=== PATIENT | female | born 1950 | race Caucasian/White ===

== ENCOUNTER → 2017-01-26 | Outpatient (CLI) | payer BC, OTHER ==
[~2017-01-26] MED LIST: IOHEXOL 350 MG/ML 100ML IJ ONE
[2017-01-26 08:40] VITALS: BP 192/92
[2017-01-26 10:00] VITALS: BP 190/94
[2017-01-26 12:13] LABS: Basophils # (auto) 0 uL; Basophils % (auto) 0.5 % (0.0-2.0); Eosinophils # (auto) 0.1 uL; Eosinophils % (auto) 1.4 % (0.0-7.0); Hematocrit 43.9 % (36.0-46.0); Hemoglobin 14.8 g/dL (12.2-16.2); Lymphocytes % (auto) 35.6 % (10.0-50.0); Mean Corpuscular Hemoglobin 30.4 pg (28.0-32.0); Mean Corpuscular Hgb Conc. 33.6 g/dL (32.0-36.0); Mean Corpuscular Volume 90.4 fL (80.0-100.0); Mean Platelet Volume 9.2 fL (7.4-10.4); Monocytes # (auto) 0.5 uL; Monocytes % (auto) 6.1 % (0.0-12.0); Neutrophils # (auto) 4.7 uL; Neutrophils % (auto) 56.4 % (37.0-80.0); Platelet Count (auto) 294 10^3/uL (140-450); Red Cell Distribution Width 13.9 % (11.6-16.0); Urine Bilirubin Negative (Negative); Urine Blood TRACE /uL (Negative); Urine Color Yellow (Yellow); Urine Glucose Normal (Normal); Urine Ketone Negative (Negative); Urine Nitrite Negative (Negative); Urine Urobilinogen Normal (Negative); Urine pH 6.5 (5.0-8.0); White Blood Cell 8.4 10^3/uL (4.4-10.8)
[2017-01-26 13:25] LABS: Albumin 3.8 g/dL (3.4-5.0); Alkaline Phosphatase 91 U/L (45-117); Anion Gap 10 (5-15); BUN/Creatinine Ratio 18.8; Bilirubin, Direct < 0.1 mg/dL (0-0.2); Bilirubin, Total 0.4 mg/dL (0.2-1.0); Blood Urea Nitrogen 18 mg/dL (7-18); Carbon Dioxide 26 mmol/L (21-32); Chloride 107 mmol/L (98-107); Cholesterol 205 mg/dL (<200); GFR African American 75 mL/min; GFR Non-African American 62 mL/min; Glucose 92 mg/dL (74-106); HDL Cholesterol 66 mg/dL (40-59); LDL Cholesterol 137 mg/dL (<100); Potassium 3.9 mmol/L (3.5-5.1); Sodium 143 mmol/L (136-145); Total Protein 8.2 g/dL (6.4-8.2); Triglycerides 127 mg/dL (<150)
[2017-01-26 15:11] LABS: Aspartate Aminotransferase 16 U/L (15-37)
== END | disposition home or self-care (01) ==
LOC: Rad HDHVI 07:56
PROVIDERS: ATTEND Internal Medicine Cardiovascular Disease
DX: I10 Essential (primary) hypertension (principal); E78.00 Pure hypercholesterolemia, unspecified; K74.1 Hepatic sclerosis; E11.9 Type 2 diabetes mellitus without complications; E03.9 Hypothyroidism, unspecified; D64.9 Anemia, unspecified; E55.9 Vitamin D deficiency, unspecified; N39.0 Urinary tract infection, site not specified
CPT/HCPCS: 36415; 71260; 80048; 80061; 80076; 81003; 82306; 83036; 84443; 85025; G0463

== ENCOUNTER → 2017-02-03 | Outpatient (CLI) | payer BC | END | disposition home or self-care (01) | LOC: Rad HDHVI 09:26 | PROVIDERS: ATTEND Internal Medicine Cardiovascular Disease | DX: I10 Essential (primary) hypertension (principal); D52.0 Dietary folate deficiency anemia; E78.5 Hyperlipidemia, unspecified; Z77.22 Contact with and (suspected) exposure to environmental tobacco smoke (acute) (chronic) | CPT/HCPCS: 93880 ==

== ENCOUNTER → 2017-11-24 | Outpatient (CLI) | payer BC ==
[~2017-11-24] VITALS: Ht 162.6 cm; Wt 76.2 kg
[~2017-11-24] MED LIST changes: +ADENOSINE 64 MG in GIVE UN-DILUTED 0 ML IV ONE; +ADENOSINE 90 MG/30 ML INJ IV ONE; +READI-CAT 2 (BARIUM SULF)(VANILLA SMOOTHIE) 450ML ONE
[2017-11-24 11:30] VITALS: BP 157/82
[2017-11-24 12:12] VITALS: BP 175/89
[2017-11-24 12:29] LABS: Albumin 3.7 g/dL (3.4-5.0); BUN/Creatinine Ratio 21.8; Bilirubin, Total 0.3 mg/dL (0.2-1.0); Calcium 8.7 mg/dL (8.5-10.1); Potassium 3.7 mmol/L (3.5-5.1); Total Protein 7.7 g/dL (6.4-8.2)
[2017-11-24 12:38] LABS: Basophils # (auto) 0 uL; Basophils % (auto) 0.7 % (0.0-2.0); Eosinophils # (auto) 0.1 uL; Hematocrit 43.1 % (36.0-46.0); Hemoglobin 14.8 g/dL (12.2-16.2); Lymphocytes # (auto) 2.9 uL; Lymphocytes % (auto) 41.5 % (10.0-50.0); Mean Corpuscular Hemoglobin 31.3 pg (28.0-32.0); Mean Corpuscular Hgb Conc. 34.4 g/dL (32.0-36.0); Monocytes # (auto) 0.4 uL; Monocytes % (auto) 5.6 % (0.0-12.0); Neutrophils # (auto) 3.6 uL; Neutrophils % (auto) 51.2 % (37.0-80.0); Nucleated Red Blood Cells % 0.5 %; Platelet Count (auto) 274 10^3/uL (140-450); Red Blood Cells 4.73 10^6/uL (4.0-5.20); Red Cell Distribution Width 13.7 % (11.8-14.3); White Blood Cell 6.9 10^3/uL (4.4-10.8)
[2017-11-24 12:43] LABS: Urine Blood TRACE /uL (Negative); Urine Specific Gravity 1.008 (1.001-1.035)
[2017-11-24 12:44] LABS: Free T4 (Free Thyroxine) 1.18 ng/dL (0.89-1.76)
== END | disposition home or self-care (01) ==
LOC: Rad HDHVI 08:28
PROVIDERS: ATTEND Internal Medicine Cardiovascular Disease
DX: N28.89 Other specified disorders of kidney and ureter (principal); K57.30 Diverticulosis of large intestine without perforation or abscess without bleeding; I70.0 Atherosclerosis of aorta; I11.0 Hypertensive heart disease with heart failure; I50.22 Chronic systolic (congestive) heart failure; G45.9 Transient cerebral ischemic attack, unspecified; E78.00 Pure hypercholesterolemia, unspecified; D64.9 Anemia, unspecified; E11.9 Type 2 diabetes mellitus without complications; E03.9 Hypothyroidism, unspecified; E55.9 Vitamin D deficiency, unspecified; D51.9 Vitamin B12 deficiency anemia, unspecified; N39.0 Urinary tract infection, site not specified
CPT/HCPCS: 36415; 71260; 74177; 78452; 80053; 80061; 81003; 82306; 82565; 82607; 83036; 84439; 84443; 85025; 93017; 93880; 96374; 96375; A9500; G0463; Q9967; J0153

== ENCOUNTER → 2017-11-26 | Outpatient (CLI) | payer BC | END | disposition home or self-care (01) | LOC: Rad HDHVI 07:51 | PROVIDERS: ATTEND Internal Medicine Cardiovascular Disease | DX: I08.0 Rheumatic disorders of both mitral and aortic valves (principal) | CPT/HCPCS: 93306 ==

== ENCOUNTER → 2018-04-22 | Outpatient (CLI) | payer BC | END | disposition home or self-care (01) | LOC: Rad HDHVI 09:10 | PROVIDERS: ATTEND Internal Medicine Cardiovascular Disease | DX: K57.30 Diverticulosis of large intestine without perforation or abscess without bleeding (principal); I25.10 Atherosclerotic heart disease of native coronary artery without angina pectoris; M51.36 Other intervertebral disc degeneration, lumbar region; Z90.5 Acquired absence of kidney | CPT/HCPCS: 71250; 74176 ==

== ENCOUNTER → 2018-04-27 | Outpatient (CLI) | payer BC | END | disposition home or self-care (01) | LOC: Rad HDHVI 10:50 | PROVIDERS: ATTEND Internal Medicine Cardiovascular Disease | DX: C64.9 Malignant neoplasm of unspecified kidney, except renal pelvis (principal); R06.01 Orthopnea; R63.4 Abnormal weight loss; I25.10 Atherosclerotic heart disease of native coronary artery without angina pectoris; I11.0 Hypertensive heart disease with heart failure; E03.9 Hypothyroidism, unspecified; E78.5 Hyperlipidemia, unspecified; I50.22 Chronic systolic (congestive) heart failure; I77.1 Stricture of artery | CPT/HCPCS: 93926; 93930 ==

== ENCOUNTER 2018-06-02 09:54 | Inpatient (IN) | payer BC, MEDICARE ==
[~2018-06-02] VITALS: Ht 165.1 cm; Wt 75.6 kg
[~2018-06-02 09:54] MED LIST changes: -ADENOSINE 64 MG in GIVE UN-DILUTED 0 ML IV ONE; -ADENOSINE 90 MG/30 ML INJ IV ONE; +AZIL40TA2 PO; +EZET10TA6 PO; -IOHEXOL 350 MG/ML 100ML IJ ONE; +LEVO100T8 PO; -READI-CAT 2 (BARIUM SULF)(VANILLA SMOOTHIE) 450ML ONE
[2018-06-02] MEDS ORDERED: SODIUM CHL 0.9% 50 ML ONE (12:35)
[2018-06-02] MEDS ORDERED: MIDAZOLAM HCL 1MG/1ML-2 ML VIAL ONE (12:35)
[2018-06-02] MEDS ORDERED: ANGIOMAX 250 MG VIAL IV ONE (12:35)
[2018-06-02] MEDS ORDERED: fentaNYL CITRATE 100 MCG/2 ML VL ONE (12:35)
[2018-06-02] MEDS ORDERED: IOHEXOL 350 MG/ML 100ML IJ ONE (12:43)
[2018-06-02] MEDS ORDERED: LIDOCAINE 2%HCL (LOCAL ANESTH.) INJ 10ml MDV ONE (12:43)
[2018-06-02] MEDS ORDERED: VERAPAMIL 2.5MG/ML INJ 2ML VIAL IV ONE (13:06)
[2018-06-02] MEDS ORDERED: ASPirin 325 MG TAB ONE (13:40)
[2018-06-02] MEDS ORDERED: CLOPIDOGREL 300 MG TAB ONE (13:40)
[2018-06-02] MEDS ORDERED: ONDANSETRON HCL 4 MG/2 ML VIAL IV PRN (14:15)
[2018-06-02] MEDS ORDERED: MORPHINE SULF INJ 2 MG/ML SYRINGE 1ML IV PRN (14:15)
[2018-06-02] MEDS ORDERED: NITROGLYCERIN 0.4 MG SL TAB SL PRN (14:15)
[2018-06-02] MEDS ORDERED: ACETAMINOPHEN 500 MG TAB PO PRN (14:15)
[2018-06-02] MEDS ORDERED: HYDROcodone-ACET 5/325MG TAB PO PRN (14:15)
[2018-06-02 17:00] VITALS: BP 149/81
[2018-06-02 17:40] VITALS: BP 149/81
[2018-06-02] MEDS: SODIUM CHLOR 0.9% PF (SALINE LOCK) 10ML VIAL/SYR IV SCH (21:11)
[2018-06-02 22:00] VITALS: BP 138/70
[2018-06-03 05:00] VITALS: BP 104/56
[2018-06-03] MEDS: SODIUM CHLOR 0.9% PF (SALINE LOCK) 10ML VIAL/SYR IV SCH ×2 (06:11→13:39)
[2018-06-03] MEDS ORDERED: LEVOTHYROXINE SODIUM 100 MCG TAB PO SCH (07:00)
[2018-06-03 09:00] VITALS: BP 123/68
[2018-06-03] MEDS ORDERED: CLOPIDOGREL BISULFATE 75 MG TAB PO SCH (10:00)
[2018-06-03] MEDS ORDERED: ASPirin 81 mg TAB PO SCH (10:00)
[2018-06-03 13:00] VITALS: BP 121/73
[2018-06-03 16:11] VITALS: BP 121/73
== END 2018-06-03 16:58 | disposition home or self-care (01) | DRG 254 ==
LOC: CATH 09:54 → TELE-EAST 09:55 → EAST 20:20
PROVIDERS: ADMIT Internal Medicine Cardiovascular Disease; ATTEND Internal Medicine Cardiovascular Disease
PROC: 037434Z Dilation of Left Subclavian Artery with Drug-eluting Intraluminal Device, Percutaneous Approach (ICD-10-PCS; principal; 2018-06-02)
DX: I70.8 Atherosclerosis of other arteries (principal); I25.10 Atherosclerotic heart disease of native coronary artery without angina pectoris; J44.9 Chronic obstructive pulmonary disease, unspecified; Z87.891 Personal history of nicotine dependence
CPT/HCPCS: 37236; 99152; A6257; J2001; J2250

== ENCOUNTER → 2018-07-28 | Outpatient (CLI) | payer BC, MEDICARE | END | disposition home or self-care (01) | LOC: Rad HDHVI 08:18 | PROVIDERS: ATTEND Internal Medicine Cardiovascular Disease | DX: M81.0 Age-related osteoporosis without current pathological fracture (principal); M17.0 Bilateral primary osteoarthritis of knee; M25.762 Osteophyte, left knee; M76.52 Patellar tendinitis, left knee | CPT/HCPCS: 73700 ==

== ENCOUNTER → 2018-09-23 | Outpatient (CLI) | payer BC, MEDICARE | END | disposition home or self-care (01) | LOC: Rad HDHVI 09:16 | PROVIDERS: ATTEND Internal Medicine Cardiovascular Disease | DX: K57.90 Diverticulosis of intestine, part unspecified, without perforation or abscess without bleeding (principal); I70.8 Atherosclerosis of other arteries; K44.9 Diaphragmatic hernia without obstruction or gangrene | CPT/HCPCS: 74176 ==

== ENCOUNTER → 2019-05-16 | Outpatient (CLI) | payer BC, MEDICARE | END | disposition home or self-care (01) | LOC: Rad HDHVI 09:45 | PROVIDERS: ATTEND Internal Medicine Cardiovascular Disease | DX: K57.30 Diverticulosis of large intestine without perforation or abscess without bleeding (principal); R91.1 Solitary pulmonary nodule; K44.9 Diaphragmatic hernia without obstruction or gangrene; M51.34 Other intervertebral disc degeneration, thoracic region | CPT/HCPCS: 74176 ==

== ENCOUNTER → 2019-05-17 | Outpatient (CLI) | payer BC, MEDICARE ==
[~2019-05-17] MED LIST changes: +EZET10TA22 PO; -EZET10TA6 PO
== END | disposition home or self-care (01) ==
LOC: Rad HDHVI 08:45
PROVIDERS: ATTEND Internal Medicine Cardiovascular Disease
DX: I34.0 Nonrheumatic mitral (valve) insufficiency (principal); I25.10 Atherosclerotic heart disease of native coronary artery without angina pectoris; J44.9 Chronic obstructive pulmonary disease, unspecified; I10 Essential (primary) hypertension
CPT/HCPCS: 93306

== ENCOUNTER → 2019-05-30 | Outpatient (CLI) | payer BC, MEDICARE ==
[~2019-05-30] VITALS: Ht 165.1 cm; Wt 77.1 kg
[~2019-05-30] MED LIST changes: +ADENOSINE 65 MG in GIVE UN-DILUTED 0 ML IV ONE; +ADENOSINE 90 MG/30 ML INJ IV ONE
[2019-05-30 12:07] LABS: Basophils # (auto) 0 uL; Basophils % (auto) 0.7 % (0.0-2.0); Eosinophils # (auto) 0.1 uL; Eosinophils % (auto) 1.6 % (0.0-7.0); Hematocrit 39.6 % (36.0-46.0); Hemoglobin 13.4 g/dL (12.2-16.2); Lymphocytes # (auto) 2.4 uL; Lymphocytes % (auto) 39.6 % (10.0-50.0); Mean Corpuscular Hgb Conc. 33.9 g/dL (32.0-36.0); Mean Corpuscular Volume 91.5 fL (80.0-100.0); Monocytes # (auto) 0.5 uL; Monocytes % (auto) 8.6 % (0.0-12.0); Neutrophils % (auto) 49.5 % (37.0-80.0); Nucleated Red Blood Cells % 0.4 %; Platelet Count (auto) 241 10^3/uL (140-450); Red Blood Cells 4.33 10^6/uL (4.0-5.20); Red Cell Distribution Width 14.3 % (11.8-14.3); White Blood Cell 6.1 10^3/uL (4.4-10.8)
[2019-05-30 12:35] LABS: Free T4 (Free Thyroxine) 1.32 ng/dL (0.89-1.76)
[2019-05-30 12:38] LABS: Urine Blood Negative /uL (Negative); Urine Specific Gravity 1.006 (1.001-1.035)
[2019-05-30 13:32] LABS: Potassium 4.5 mmol/L (3.5-5.1)
[2019-05-30 14:02] LABS: Albumin 3.9 g/dL (3.4-5.0); BUN/Creatinine Ratio 20.4; Bilirubin, Total 0.3 mg/dL (0.2-1.0); Calcium 9.5 mg/dL (8.5-10.1); Total Protein 7.9 g/dL (6.4-8.2)
== END | disposition home or self-care (01) ==
LOC: Rad HDHVI 08:59
PROVIDERS: ATTEND Internal Medicine Cardiovascular Disease
DX: Z00.00 Encounter for general adult medical examination without abnormal findings (principal); E03.9 Hypothyroidism, unspecified; E55.9 Vitamin D deficiency, unspecified; N39.0 Urinary tract infection, site not specified; D51.9 Vitamin B12 deficiency anemia, unspecified; E11.9 Type 2 diabetes mellitus without complications; Z79.899 Other long term (current) drug therapy
CPT/HCPCS: 36415; 78452; 80053; 80061; 81003; 82306; 82607; 83036; 84439; 84443; 85025; 93005; 96374; 96375; A9500; J0153

== ENCOUNTER → 2019-08-29 | Outpatient (CLI) | payer BC, MEDICARE ==
[~2019-08-29] MED LIST changes: -ADENOSINE 65 MG in GIVE UN-DILUTED 0 ML IV ONE; -ADENOSINE 90 MG/30 ML INJ IV ONE
[2019-08-29 12:14] VITALS: BP 163/82
--- NOTE | 2019-08-29 12:15 | NUR ---
Signature Attestation Statement: I DALE PRICE performed this procedure EECP on this patient. Addendum: 08/29/19 at 1216 by DALE PRICE [email or web address] Amended: Links added.
[2019-08-29 12:16] VITALS: BP 136/77
--- NOTE | 2019-08-29 12:16 | NUR ---
Signature Attestation Statement: I DALE PRICE performed this procedure EECP on this patient. Addendum: 08/29/19 at 1217 by DALE PRICE [email or web address] Amended: Links added.
--- NOTE | 2019-08-29 12:17 | NUR ---
Signature Attestation Statement: I DALE PRICE performed this procedure EECP on this patient. Addendum: 08/29/19 at 1221 by DALE PRICE [email or web address] Amended: Links added.
--- NOTE | 2019-08-29 12:24 | NUR ---
Signature Attestation Statement: I DALE PRICE performed this procedure EECP on this patient. Addendum: 08/29/19 at 1225 by DALE PRICE [email or web address] Amended: Links added.
== END | disposition home or self-care (01) ==
LOC: CHF HDHVI 10:25
PROVIDERS: ATTEND Internal Medicine Cardiovascular Disease
DX: I25.118 Atherosclerotic heart disease of native coronary artery with other forms of angina pectoris (principal); I10 Essential (primary) hypertension; J44.9 Chronic obstructive pulmonary disease, unspecified; I63.9 Cerebral infarction, unspecified; H54.7 Unspecified visual loss; F17.200 Nicotine dependence, unspecified, uncomplicated; E78.00 Pure hypercholesterolemia, unspecified; Z98.61 Coronary angioplasty status
CPT/HCPCS: G0166

== ENCOUNTER → 2019-08-30 | Outpatient (CLI) | payer BC, MEDICARE ==
[2019-08-30 11:51] VITALS: BP 160/89
[2019-08-30 11:52] VITALS: BP 165/85
--- NOTE | 2019-08-30 11:52 | NUR ---
Signature Attestation Statement: I DALE PRICE performed this procedure EECP on this patient. Addendum: 08/30/19 at 1152 by DALE PRICE [email or web address] Amended: Links added.
--- NOTE | 2019-08-30 11:53 | NUR ---
Signature Attestation Statement: I DALE PRICE performed this procedure EECP on this patient. Addendum: 08/30/19 at 1153 by DALE PRICE [email or web address] Amended: Links added.
--- NOTE | 2019-08-30 11:53 | NUR ---
Signature Attestation Statement: I DALE PRICE performed this procedure EECP on this patient. Addendum: 08/30/19 at 1154 by DALE PRICE [email or web address] Amended: Links added.
--- NOTE | 2019-08-30 11:59 | NUR ---
Signature Attestation Statement: I DALE PRICE performed this procedure EECP on this patient. Addendum: 08/30/19 at 1159 by DALE PRICE [email or web address] Amended: Links added.
== END | disposition home or self-care (01) ==
LOC: CHF HDHVI 10:08
PROVIDERS: ATTEND Internal Medicine Cardiovascular Disease
DX: I25.118 Atherosclerotic heart disease of native coronary artery with other forms of angina pectoris (principal); I10 Essential (primary) hypertension; J44.9 Chronic obstructive pulmonary disease, unspecified; I63.9 Cerebral infarction, unspecified; H54.7 Unspecified visual loss; F17.200 Nicotine dependence, unspecified, uncomplicated; I67.9 Cerebrovascular disease, unspecified; I73.9 Peripheral vascular disease, unspecified; E78.00 Pure hypercholesterolemia, unspecified; Z98.61 Coronary angioplasty status
CPT/HCPCS: G0166

== ENCOUNTER → 2019-08-31 | Outpatient (CLI) | payer BC, MEDICARE ==
[2019-08-31 12:23] VITALS: BP 109/67
[2019-08-31 12:24] VITALS: BP 115/73
--- NOTE | 2019-08-31 12:24 | NUR ---
Signature Attestation Statement: I DALE PRICE performed this procedure EECP on this patient. Addendum: 08/31/19 at 1224 by DALE PRICE [email or web address] Amended: Links added.
--- NOTE | 2019-08-31 12:24 | NUR ---
Signature Attestation Statement: I DALE PRICE performed this procedure EECP on this patient. Addendum: 08/31/19 at 1225 by DALE PRICE [email or web address] Amended: Links added.
--- NOTE | 2019-08-31 12:25 | NUR ---
Signature Attestation Statement: I DALE PRICE performed this procedure EECP on this patient. Addendum: 08/31/19 at 1226 by DALE PRICE [email or web address] Amended: Links added.
--- NOTE | 2019-08-31 12:30 | NUR ---
Signature Attestation Statement: I DALE PRICE performed this procedure EECP on this patient. Addendum: 08/31/19 at 1230 by DALE PRICE [email or web address] Amended: Links added.
== END | disposition home or self-care (01) ==
LOC: CHF HDHVI 10:17
PROVIDERS: ATTEND Internal Medicine Cardiovascular Disease
DX: I25.118 Atherosclerotic heart disease of native coronary artery with other forms of angina pectoris (principal); E78.00 Pure hypercholesterolemia, unspecified; I63.9 Cerebral infarction, unspecified; H54.7 Unspecified visual loss; I67.9 Cerebrovascular disease, unspecified; I10 Essential (primary) hypertension; I73.9 Peripheral vascular disease, unspecified
CPT/HCPCS: G0166

== ENCOUNTER → 2019-09-04 | Outpatient (CLI) | payer BC, MEDICARE ==
[2019-09-04 11:11] VITALS: BP 126/76
--- NOTE | 2019-09-04 11:11 | NUR ---
Signature Attestation Statement: I DALE PRICE performed this procedure EECP on this patient. Addendum: 09/04/19 at 1112 by DALE PRICE [email or web address] Amended: Links added.
[2019-09-04 11:30] VITALS: BP 115/73
--- NOTE | 2019-09-04 11:30 | NUR ---
Signature Attestation Statement: I DALE PRICE performed this procedure EECP on this patient. Addendum: 09/04/19 at 1130 by DALE PRICE [email or web address] Amended: Links added.
--- NOTE | 2019-09-04 11:36 | NUR ---
Signature Attestation Statement: I DALE PRICE performed this procedure EECP on this patient. Addendum: 09/04/19 at 1136 by DALE PRICE [email or web address] Amended: Links added.
== END | disposition home or self-care (01) ==
LOC: CHF HDHVI 10:16
PROVIDERS: ATTEND Internal Medicine Cardiovascular Disease
DX: I25.118 Atherosclerotic heart disease of native coronary artery with other forms of angina pectoris (principal); J44.9 Chronic obstructive pulmonary disease, unspecified; I10 Essential (primary) hypertension; I63.9 Cerebral infarction, unspecified; H54.7 Unspecified visual loss; F17.200 Nicotine dependence, unspecified, uncomplicated; I67.9 Cerebrovascular disease, unspecified; I73.9 Peripheral vascular disease, unspecified; E78.00 Pure hypercholesterolemia, unspecified; Z98.61 Coronary angioplasty status
CPT/HCPCS: G0166

== ENCOUNTER → 2019-09-05 | Outpatient (CLI) | payer BC, MEDICARE ==
[2019-09-05 11:06] VITALS: BP 122/70
--- NOTE | 2019-09-05 11:07 | NUR ---
Signature Attestation Statement: I DALE PRICE performed this procedure EECP on this patient. Addendum: 09/05/19 at 1107 by DALE PRICE [email or web address] Amended: Links added.
--- NOTE | 2019-09-05 11:08 | NUR ---
Signature Attestation Statement: I DALE PRICE performed this procedure EECP on this patient. Addendum: 09/05/19 at 1108 by DALE PRICE [email or web address] Amended: Links added.
[2019-09-05 12:01] VITALS: BP 98/64
--- NOTE | 2019-09-05 12:01 | NUR ---
Signature Attestation Statement: I DALE PRICE performed this procedure EECP on this patient. Addendum: 09/05/19 at 1201 by DALE PRICE [email or web address] Amended: Links added.
[2019-09-05 12:02] VITALS: BP 98/64
--- NOTE | 2019-09-05 12:02 | NUR ---
Signature Attestation Statement: I DALE PRICE performed this procedure EECP on this patient. Addendum: 09/05/19 at 1202 by DALE PRICE [email or web address] Amended: Links added.
--- NOTE | 2019-09-05 12:03 | NUR ---
Signature Attestation Statement: I DALE PRICE performed this procedure EECP on this patient. Addendum: 09/05/19 at 1204 by DALE PRICE [email or web address] Amended: Links added.
== END | disposition home or self-care (01) ==
LOC: CHF HDHVI 10:29
PROVIDERS: ATTEND Internal Medicine Cardiovascular Disease
DX: I25.118 Atherosclerotic heart disease of native coronary artery with other forms of angina pectoris (principal); I10 Essential (primary) hypertension; J44.9 Chronic obstructive pulmonary disease, unspecified; I63.9 Cerebral infarction, unspecified; H54.7 Unspecified visual loss; F17.200 Nicotine dependence, unspecified, uncomplicated; I67.9 Cerebrovascular disease, unspecified; I73.9 Peripheral vascular disease, unspecified; E78.00 Pure hypercholesterolemia, unspecified; Z98.61 Coronary angioplasty status
CPT/HCPCS: G0166

== ENCOUNTER → 2019-09-06 | Outpatient (CLI) | payer BC, MEDICARE ==
[2019-09-06 10:58] VITALS: BP 151/80
--- NOTE | 2019-09-06 10:59 | NUR ---
Signature Attestation Statement: I DALE PRICE performed this procedure EECP on this patient. Addendum: 09/06/19 at 1059 by DALE PRICE [email or web address] Amended: Links added.
--- NOTE | 2019-09-06 10:59 | NUR ---
Signature Attestation Statement: I DALE PRICE performed this procedure EECP on this patient. Addendum: 09/06/19 at 1100 by DALE PRICE [email or web address] Amended: Links added.
--- NOTE | 2019-09-06 11:44 | NUR ---
Signature Attestation Statement: I DALE PRICE performed this procedure EECP on this patient. Addendum: 09/06/19 at 1145 by DALE PRICE [email or web address] Amended: Links added.
[2019-09-06 11:45] VITALS: BP 154/89
--- NOTE | 2019-09-06 11:45 | NUR ---
Signature Attestation Statement: I DALE PRICE performed this procedure EECP on this patient. Addendum: 09/06/19 at 1146 by DALE PRICE [email or web address] Amended: Links added.
== END | disposition home or self-care (01) ==
LOC: CHF HDHVI 10:20
PROVIDERS: ATTEND Internal Medicine Cardiovascular Disease
DX: I25.118 Atherosclerotic heart disease of native coronary artery with other forms of angina pectoris (principal); I10 Essential (primary) hypertension; J44.9 Chronic obstructive pulmonary disease, unspecified; I63.9 Cerebral infarction, unspecified; H54.7 Unspecified visual loss; F17.200 Nicotine dependence, unspecified, uncomplicated; I67.9 Cerebrovascular disease, unspecified; I73.9 Peripheral vascular disease, unspecified; E78.00 Pure hypercholesterolemia, unspecified; Z98.61 Coronary angioplasty status
CPT/HCPCS: G0166

== ENCOUNTER → 2019-09-07 | Outpatient (CLI) | payer BC, MEDICARE ==
[2019-09-07 11:39] VITALS: BP 146/91
--- NOTE | 2019-09-07 11:40 | NUR ---
Signature Attestation Statement: I DALE PRICE performed this procedure EECP on this patient. Addendum: 09/07/19 at 1141 by DALE PRICE [email or web address] Amended: Links added.
[2019-09-07 11:41] VITALS: BP 135/79
--- NOTE | 2019-09-07 11:41 | NUR ---
Signature Attestation Statement: I DALE PRICE performed this procedure EECP on this patient. Addendum: 09/07/19 at 1142 by DALE PRICE [email or web address] Amended: Links added.
--- NOTE | 2019-09-07 11:42 | NUR ---
Signature Attestation Statement: I DALE PRICE performed this procedure EECP on this patient. Addendum: 09/07/19 at 1143 by DALE PRICE [email or web address] Amended: Links added.
--- NOTE | 2019-09-07 11:50 | NUR ---
Signature Attestation Statement: I DALE PRICE performed this procedure EECP on this patient. Addendum: 09/07/19 at 1150 by DALE PRICE [email or web address] Amended: Links added.
== END | disposition home or self-care (01) ==
LOC: CHF HDHVI 10:03
PROVIDERS: ATTEND Internal Medicine Cardiovascular Disease
DX: I25.118 Atherosclerotic heart disease of native coronary artery with other forms of angina pectoris (principal); J44.9 Chronic obstructive pulmonary disease, unspecified; I10 Essential (primary) hypertension; I63.9 Cerebral infarction, unspecified; H54.7 Unspecified visual loss; F17.200 Nicotine dependence, unspecified, uncomplicated; I67.9 Cerebrovascular disease, unspecified; I73.9 Peripheral vascular disease, unspecified; E78.00 Pure hypercholesterolemia, unspecified; Z98.61 Coronary angioplasty status
CPT/HCPCS: G0166

== ENCOUNTER → 2019-09-08 | Outpatient (CLI) | payer BC, MEDICARE ==
[2019-09-08 10:47] VITALS: BP 143/82
--- NOTE | 2019-09-08 10:47 | NUR ---
Signature Attestation Statement: I DALE PRICE performed this procedure EECP on this patient. Addendum: 09/08/19 at 1048 by DALE PRICE [email or web address] Amended: Links added.
--- NOTE | 2019-09-08 10:49 | NUR ---
Signature Attestation Statement: I DALE PRICE performed this procedure EECP on this patient. Addendum: 09/08/19 at 1049 by DALE PRICE [email or web address] Amended: Links added.
[2019-09-08 12:15] VITALS: BP 131/78
--- NOTE | 2019-09-08 12:15 | NUR ---
Signature Attestation Statement: I DALE PRICE performed this procedure EECP on this patient. Addendum: 09/08/19 at 1216 by DALE PRICE [email or web address] Amended: Links added.
--- NOTE | 2019-09-08 12:15 | NUR ---
Signature Attestation Statement: I DALE PRICE performed this procedure EECP on this patient. Addendum: 09/08/19 at 1215 by DALE PRICE [email or web address] Amended: Links added.
[2019-09-08 12:16] VITALS: BP 143/82
--- NOTE | 2019-09-08 12:16 | NUR ---
Signature Attestation Statement: I DALE PRICE performed this procedure EECP on this patient. Addendum: 09/08/19 at 1217 by DALE PRICE [email or web address] Amended: Links added.
--- NOTE | 2019-09-08 12:19 | NUR ---
Signature Attestation Statement: I DALE PRICE performed this procedure EECP on this patient. Addendum: 09/08/19 at 1219 by DALE PRICE [email or web address] Amended: Links added.
== END | disposition home or self-care (01) ==
LOC: CHF HDHVI 10:03
PROVIDERS: ATTEND Internal Medicine Cardiovascular Disease
DX: I25.118 Atherosclerotic heart disease of native coronary artery with other forms of angina pectoris (principal); J44.9 Chronic obstructive pulmonary disease, unspecified; I10 Essential (primary) hypertension; I63.9 Cerebral infarction, unspecified; H54.7 Unspecified visual loss; F17.200 Nicotine dependence, unspecified, uncomplicated; I67.9 Cerebrovascular disease, unspecified; I73.9 Peripheral vascular disease, unspecified; E78.00 Pure hypercholesterolemia, unspecified; Z98.61 Coronary angioplasty status
CPT/HCPCS: G0166

== ENCOUNTER → 2019-09-12 | Outpatient (CLI) | payer BC, MEDICARE ==
[2019-09-12 10:53] VITALS: BP 161/87
--- NOTE | 2019-09-12 10:53 | NUR ---
Signature Attestation Statement: I DALE PRICE performed this procedure EECP on this patient. Addendum: 09/12/19 at 1053 by DALE PRICE [email or web address] Amended: Links added.
--- NOTE | 2019-09-12 10:54 | NUR ---
Signature Attestation Statement: I DALE PRICE performed this procedure EECP on this patient. Addendum: 09/12/19 at 1054 by DALE PRICE [email or web address] Amended: Links added.
[2019-09-12 11:22] VITALS: BP 148/83
--- NOTE | 2019-09-12 11:22 | NUR ---
Signature Attestation Statement: I DALE PRICE performed this procedure EECP on this patient. Addendum: 09/12/19 at 1122 by DALE PRICE [email or web address] Amended: Links added.
--- NOTE | 2019-09-12 11:32 | NUR ---
Signature Attestation Statement: I DALE PRICE performed this procedure EECP on this patient. Addendum: 09/12/19 at 1132 by DALE PRICE [email or web address] Amended: Links added.
== END | disposition home or self-care (01) ==
LOC: CHF HDHVI 10:03
PROVIDERS: ATTEND Internal Medicine Cardiovascular Disease
DX: I25.118 Atherosclerotic heart disease of native coronary artery with other forms of angina pectoris (principal); I10 Essential (primary) hypertension; J44.9 Chronic obstructive pulmonary disease, unspecified; I63.9 Cerebral infarction, unspecified; H54.7 Unspecified visual loss; F17.200 Nicotine dependence, unspecified, uncomplicated; I67.9 Cerebrovascular disease, unspecified; I73.9 Peripheral vascular disease, unspecified; E78.00 Pure hypercholesterolemia, unspecified; Z88.2 Allergy status to sulfonamides; Z88.1 Allergy status to other antibiotic agents; Z88.8 Allergy status to other drugs, medicaments and biological substances; Z98.61 Coronary angioplasty status; Z95.818 Presence of other cardiac implants and grafts
CPT/HCPCS: G0166

== ENCOUNTER → 2019-09-13 | Outpatient (CLI) | payer BC, MEDICARE ==
[2019-09-13 10:55] VITALS: BP 132/74
--- NOTE | 2019-09-13 10:56 | NUR ---
Signature Attestation Statement: I DALE PRICE performed this procedure EECP on this patient. Addendum: 09/13/19 at 1057 by DALE PRICE [email or web address] Amended: Links added.
--- NOTE | 2019-09-13 11:23 | NUR ---
Signature Attestation Statement: I DALE PRICE performed this procedure EECP on this patient. Addendum: 09/13/19 at 1124 by DALE PRICE [email or web address] Amended: Links added.
[2019-09-13 11:24] VITALS: BP 128/77
--- NOTE | 2019-09-13 11:33 | NUR ---
Signature Attestation Statement: I DALE PRICE performed this procedure EECP on this patient. Addendum: 09/13/19 at 1133 by DALE PRICE [email or web address] Amended: Links added.
== END | disposition home or self-care (01) ==
LOC: CHF HDHVI 10:05
PROVIDERS: ATTEND Internal Medicine Cardiovascular Disease
DX: I25.118 Atherosclerotic heart disease of native coronary artery with other forms of angina pectoris (principal); Z98.61 Coronary angioplasty status; J44.9 Chronic obstructive pulmonary disease, unspecified; I10 Essential (primary) hypertension; I63.9 Cerebral infarction, unspecified; H54.7 Unspecified visual loss; F17.200 Nicotine dependence, unspecified, uncomplicated; I67.9 Cerebrovascular disease, unspecified; I73.9 Peripheral vascular disease, unspecified; E78.00 Pure hypercholesterolemia, unspecified; Z88.2 Allergy status to sulfonamides; Z88.1 Allergy status to other antibiotic agents
CPT/HCPCS: G0166

== ENCOUNTER → 2019-09-14 | Outpatient (CLI) | payer BC, MEDICARE ==
[2019-09-14 11:38] VITALS: BP 126/76
--- NOTE | 2019-09-14 11:39 | NUR ---
Signature Attestation Statement: I DALE PRICE performed this procedure EECP on this patient. Addendum: 09/14/19 at 1139 by DALE PRICE [email or web address] Amended: Links added.
--- NOTE | 2019-09-14 11:39 | NUR ---
Signature Attestation Statement: I DALE PRICE performed this procedure EECP on this patient. Addendum: 09/14/19 at 1140 by DALE PRICE [email or web address] Amended: Links added.
[2019-09-14 12:17] VITALS: BP 126/78
--- NOTE | 2019-09-14 12:17 | NUR ---
Signature Attestation Statement: I DALE PRICE performed this procedure EECP on this patient. Addendum: 09/14/19 at 1217 by DALE PRICE [email or web address] Amended: Links added.
--- NOTE | 2019-09-14 12:23 | NUR ---
Signature Attestation Statement: I DALE PRICE performed this procedure EECP on this patient. Addendum: 09/14/19 at 1224 by DALE PRICE [email or web address] Amended: Links added.
== END | disposition home or self-care (01) ==
LOC: CHF HDHVI 10:18
PROVIDERS: ATTEND Internal Medicine Cardiovascular Disease
DX: I25.118 Atherosclerotic heart disease of native coronary artery with other forms of angina pectoris (principal); J44.9 Chronic obstructive pulmonary disease, unspecified; I10 Essential (primary) hypertension; I63.9 Cerebral infarction, unspecified; H54.7 Unspecified visual loss; F17.200 Nicotine dependence, unspecified, uncomplicated; I67.9 Cerebrovascular disease, unspecified; I73.9 Peripheral vascular disease, unspecified; E78.00 Pure hypercholesterolemia, unspecified; Z88.1 Allergy status to other antibiotic agents; Z98.61 Coronary angioplasty status; Z88.8 Allergy status to other drugs, medicaments and biological substances
CPT/HCPCS: G0166

== ENCOUNTER → 2019-09-15 | Outpatient (CLI) | payer BC, MEDICARE ==
[2019-09-15 10:47] VITALS: BP 148/79
--- NOTE | 2019-09-15 10:48 | NUR ---
Signature Attestation Statement: I DALE PRICE performed this procedure EECP on this patient. Addendum: 09/15/19 at 1049 by DALE PRICE [email or web address] Amended: Links added.
--- NOTE | 2019-09-15 10:48 | NUR ---
Signature Attestation Statement: I DLAE PRICE performed this procedure EECP on this patient. Addendum: 09/15/19 at 1048 by DALE PRICE [email or web address] Amended: Links added.
--- NOTE | 2019-09-15 11:16 | NUR ---
Signature Attestation Statement: I DALE PRICE performed this procedure EECP on this patient. Addendum: 09/15/19 at 1117 by DALE PRICE [email or web address] Amended: Links added.
[2019-09-15 11:17] VITALS: BP 133/75
--- NOTE | 2019-09-15 11:26 | NUR ---
Signature Attestation Statement: I DALE PRICE performed this procedure EECP on this patient. Addendum: 09/15/19 at 1126 by DALE PRICE [email or web address] Amended: Links added.
== END | disposition home or self-care (01) ==
LOC: CHF HDHVI 10:12
PROVIDERS: ATTEND Internal Medicine Cardiovascular Disease
DX: I25.118 Atherosclerotic heart disease of native coronary artery with other forms of angina pectoris (principal); J44.9 Chronic obstructive pulmonary disease, unspecified; I10 Essential (primary) hypertension; H54.7 Unspecified visual loss; I67.9 Cerebrovascular disease, unspecified; I73.9 Peripheral vascular disease, unspecified; E78.00 Pure hypercholesterolemia, unspecified; F17.200 Nicotine dependence, unspecified, uncomplicated; Z98.61 Coronary angioplasty status
CPT/HCPCS: G0166

== ENCOUNTER → 2019-09-19 | Outpatient (CLI) | payer BC, MEDICARE ==
[2019-09-19 12:00] VITALS: BP 154/87
--- NOTE | 2019-09-19 12:00 | NUR ---
Signature Attestation Statement: I DALE PRICE performed this procedure EECP on this patient. Addendum: 09/19/19 at 1203 by DALE PRICE [email or web address] Amended: Links added.
[2019-09-19 12:03] VITALS: BP 140/77
--- NOTE | 2019-09-19 12:04 | NUR ---
Signature Attestation Statement: I DALE PRICE performed this procedure EECP on this patient. Addendum: 09/19/19 at 1204 by DALE PRICE [email or web address] Amended: Links added.
--- NOTE | 2019-09-19 12:05 | NUR ---
Signature Attestation Statement: I DALE PRICE performed this procedure EECP on this patient. Addendum: 09/19/19 at 1205 by DALE PRICE [email or web address] Amended: Links added.
--- NOTE | 2019-09-19 12:11 | NUR ---
Signature Attestation Statement: I DALE PRICE performed this procedure EECP on this patient. Addendum: 09/19/19 at 1211 by DALE PRICE [email or web address] Amended: Links added.
== END | disposition home or self-care (01) ==
LOC: CHF HDHVI 10:02
PROVIDERS: ATTEND Internal Medicine Cardiovascular Disease
DX: I25.118 Atherosclerotic heart disease of native coronary artery with other forms of angina pectoris (principal); J44.9 Chronic obstructive pulmonary disease, unspecified; I10 Essential (primary) hypertension; E78.5 Hyperlipidemia, unspecified; I63.9 Cerebral infarction, unspecified; H54.7 Unspecified visual loss; F17.200 Nicotine dependence, unspecified, uncomplicated; Z98.61 Coronary angioplasty status; Z88.1 Allergy status to other antibiotic agents; Z88.2 Allergy status to sulfonamides
CPT/HCPCS: G0166

== ENCOUNTER → 2019-09-20 | Outpatient (CLI) | payer BC, MEDICARE ==
[2019-09-20 10:46] VITALS: BP 152/84
--- NOTE | 2019-09-20 10:46 | NUR ---
Signature Attestation Statement: I DALE PRICE performed this procedure EECP on this patient. Addendum: 09/20/19 at 1046 by DALE PRICE [email or web address] Amended: Links added.
--- NOTE | 2019-09-20 10:47 | NUR ---
Signature Attestation Statement: I DALE PRICE performed this procedure EECP on this patient. Addendum: 09/20/19 at 1047 by DALE PRICE [email or web address] Amended: Links added.
--- NOTE | 2019-09-20 11:06 | NUR ---
Signature Attestation Statement: I DALE PRICE performed this procedure EECP on this patient. Addendum: 09/20/19 at 1107 by DALE PRIEC HDHI2 Amended: Links added.
[2019-09-20 11:07] VITALS: BP 144/84
--- NOTE | 2019-09-20 11:17 | NUR ---
Signature Attestation Statement: I DALE PRICE performed this procedure EECP on this patient. Addendum: 09/20/19 at 1117 by DALE PRICE [email or web address] Amended: Links added.
== END | disposition home or self-care (01) ==
LOC: CHF HDHVI 10:02
PROVIDERS: ATTEND Internal Medicine Cardiovascular Disease
DX: I25.118 Atherosclerotic heart disease of native coronary artery with other forms of angina pectoris (principal); J44.9 Chronic obstructive pulmonary disease, unspecified; I10 Essential (primary) hypertension; I63.9 Cerebral infarction, unspecified; H54.7 Unspecified visual loss; F17.200 Nicotine dependence, unspecified, uncomplicated; I67.9 Cerebrovascular disease, unspecified; I73.9 Peripheral vascular disease, unspecified; E78.00 Pure hypercholesterolemia, unspecified; Z88.1 Allergy status to other antibiotic agents
CPT/HCPCS: G0166

== ENCOUNTER → 2019-09-21 | Outpatient (CLI) | payer BC, MEDICARE ==
[2019-09-21 11:48] VITALS: BP 162/88
[2019-09-21 11:49] VITALS: BP 147/84
--- NOTE | 2019-09-21 11:49 | NUR ---
Signature Attestation Statement: I DALE PRICE performed this procedure EECP on this patient. Addendum: 09/21/19 at 1149 by DALE PRICE [email or web address] Amended: Links added.
--- NOTE | 2019-09-21 11:50 | NUR ---
Signature Attestation Statement: I DALE PRICE performed this procedure EECP on this patient. Addendum: 09/21/19 at 1150 by DALE PRICE [email or web address] Amended: Links added.
--- NOTE | 2019-09-21 11:50 | NUR ---
Signature Attestation Statement: I DALE PRICE performed this procedure EECP on this patient. Addendum: 09/21/19 at 1151 by DALE PRICE [email or web address] Amended: Links added.
--- NOTE | 2019-09-21 12:01 | NUR ---
Signature Attestation Statement: I DALE PRICE performed this procedure EECP on this patient. Addendum: 09/21/19 at 1201 by DALE PRICE [email or web address] Amended: Links added.
[2019-09-21 12:03] LABS: Basophils # (auto) 0 uL; Basophils % (auto) 0.7 % (0.0-2.0); Eosinophils # (auto) 0.1 uL; Eosinophils % (auto) 1.4 % (0.0-7.0); Hematocrit 40.9 % (36.0-46.0); Hemoglobin 13.6 g/dL (12.2-16.2); Lymphocytes # (auto) 2.4 uL; Mean Corpuscular Hemoglobin 30.8 pg (28.0-32.0); Mean Corpuscular Hgb Conc. 33.4 g/dL (32.0-36.0); Mean Corpuscular Volume 92.4 fL (80.0-100.0); Monocytes # (auto) 0.4 uL; Monocytes % (auto) 6.6 % (0.0-12.0); Neutrophils # (auto) 3.4 uL; Neutrophils % (auto) 53.3 % (37.0-80.0); Nucleated Red Blood Cells % 0.1 %; Platelet Count (auto) 251 10^3/uL (140-450); Red Blood Cells 4.42 10^6/uL (4.0-5.20); Red Cell Distribution Width 14.3 % (11.8-14.3); White Blood Cell 6.4 10^3/uL (4.4-10.8)
[2019-09-21 12:11] LABS: Potassium 3.8 mmol/L (3.5-5.1)
[2019-09-21 12:16] LABS: BUN/Creatinine Ratio 21.3
== END | disposition home or self-care (01) ==
LOC: CHF HDHVI 10:29
PROVIDERS: ATTEND Internal Medicine Cardiovascular Disease
DX: Z01.812 Encounter for preprocedural laboratory examination (principal); I25.10 Atherosclerotic heart disease of native coronary artery without angina pectoris; F17.200 Nicotine dependence, unspecified, uncomplicated; Z88.1 Allergy status to other antibiotic agents; Z88.2 Allergy status to sulfonamides
CPT/HCPCS: 36415; 80048; 82947; 85025; G0166

== ENCOUNTER → 2019-09-25 | Outpatient (CLI) | payer BC, MEDICARE ==
[2019-09-25 10:53] VITALS: BP 160/83
--- NOTE | 2019-09-25 10:54 | NUR ---
Signature Attestation Statement: I DALE PRICE performed this procedure EECP on this patient. Addendum: 09/25/19 at 1055 by DALE PRICE [email or web address] Amended: Links added.
--- NOTE | 2019-09-25 10:54 | NUR ---
Signature Attestation Statement: I DALE PRICE performed this procedure EECP on this patient. Addendum: 09/25/19 at 1054 by DALE PRICE [email or web address] Amended: Links added.
[2019-09-25 11:09] VITALS: BP 143/84
--- NOTE | 2019-09-25 11:09 | NUR ---
Signature Attestation Statement: I DALE PRICE performed this procedure EECP on this patient. Addendum: 09/25/19 at 1109 by DALE PRICE [email or web address] Amended: Links added.
--- NOTE | 2019-09-25 11:20 | NUR ---
Signature Attestation Statement: I DALE PRICE performed this procedure EECP on this patient. Addendum: 09/25/19 at 1120 by DALE PRICE [email or web address] Amended: Links added.
== END | disposition home or self-care (01) ==
LOC: CHF HDHVI 10:11
PROVIDERS: ATTEND Internal Medicine Cardiovascular Disease
DX: I25.118 Atherosclerotic heart disease of native coronary artery with other forms of angina pectoris (principal); I63.9 Cerebral infarction, unspecified; H54.7 Unspecified visual loss; F17.200 Nicotine dependence, unspecified, uncomplicated; I67.9 Cerebrovascular disease, unspecified; I10 Essential (primary) hypertension; I73.9 Peripheral vascular disease, unspecified; E78.00 Pure hypercholesterolemia, unspecified; J44.9 Chronic obstructive pulmonary disease, unspecified; Z98.61 Coronary angioplasty status; Z88.2 Allergy status to sulfonamides
CPT/HCPCS: G0166

== ENCOUNTER → 2019-09-26 | Outpatient (CLI) | payer BC, MEDICARE ==
[2019-09-26 10:28] VITALS: BP 126/67
--- NOTE | 2019-09-26 10:28 | NUR ---
Signature Attestation Statement: I DALE PRICE performed this procedure EECP on this patient. Addendum: 09/26/19 at 1028 by DALE PRICE [email or web address] Amended: Links added.
--- NOTE | 2019-09-26 10:29 | NUR ---
Signature Attestation Statement: I DALE PRICE performed this procedure EECP on this patient. Addendum: 09/26/19 at 1029 by DALE PRICE [email or web address] Amended: Links added.
[2019-09-26 11:00] VITALS: BP 114/69
--- NOTE | 2019-09-26 11:00 | NUR ---
Signature Attestation Statement: I DALE PRICE performed this procedure EECP on this patient. Addendum: 09/26/19 at 1100 by DALE PRICE [email or web address] Amended: Links added.
--- NOTE | 2019-09-26 11:09 | NUR ---
Signature Attestation Statement: I DALE PRICE performed this procedure EECP on this patient. Addendum: 09/26/19 at 1109 by DALE PRICE [email or web address] Amended: Links added.
== END | disposition home or self-care (01) ==
LOC: CHF HDHVI 09:56
PROVIDERS: ATTEND Internal Medicine Cardiovascular Disease
DX: I25.118 Atherosclerotic heart disease of native coronary artery with other forms of angina pectoris (principal); I10 Essential (primary) hypertension; R06.02 Shortness of breath; J44.9 Chronic obstructive pulmonary disease, unspecified; I63.9 Cerebral infarction, unspecified; H54.7 Unspecified visual loss; F17.200 Nicotine dependence, unspecified, uncomplicated; I67.9 Cerebrovascular disease, unspecified; I73.9 Peripheral vascular disease, unspecified; E78.00 Pure hypercholesterolemia, unspecified; Z95.5 Presence of coronary angioplasty implant and graft
CPT/HCPCS: G0166

== ENCOUNTER → 2019-09-27 | Outpatient (CLI) | payer BC, MEDICARE ==
[2019-09-27 10:58] VITALS: BP 139/79
--- NOTE | 2019-09-27 10:58 | NUR ---
Signature Attestation Statement: I DALE PRICE performed this procedure EECP on this patient. Addendum: 09/27/19 at 1059 by DALE PRICE [email or web address] Amended: Links added.
[2019-09-27 11:19] VITALS: BP 129/78
--- NOTE | 2019-09-27 11:19 | NUR ---
Signature Attestation Statement: I DALE PRICE performed this procedure EECP on this patient. Addendum: 09/27/19 at 1119 by DALE PRICE [email or web address] Amended: Links added.
--- NOTE | 2019-09-27 11:20 | NUR ---
Signature Attestation Statement: I DALE PRICE performed this procedure EECP on this patient. Addendum: 09/27/19 at 1120 by DALE PRICE [email or web address] Amended: Links added.
== END | disposition home or self-care (01) ==
LOC: CHF HDHVI 09:53
PROVIDERS: ATTEND Internal Medicine Cardiovascular Disease
DX: I25.118 Atherosclerotic heart disease of native coronary artery with other forms of angina pectoris (principal); I10 Essential (primary) hypertension; J44.9 Chronic obstructive pulmonary disease, unspecified; I63.9 Cerebral infarction, unspecified; H54.7 Unspecified visual loss; F17.200 Nicotine dependence, unspecified, uncomplicated; I67.9 Cerebrovascular disease, unspecified; I73.9 Peripheral vascular disease, unspecified; E78.00 Pure hypercholesterolemia, unspecified; Z98.61 Coronary angioplasty status
CPT/HCPCS: G0166

== ENCOUNTER → 2019-09-28 | Outpatient (CLI) | payer BC, MEDICARE ==
[2019-09-28 11:36] VITALS: BP 148/84
[2019-09-28 11:37] VITALS: BP 129/77
--- NOTE | 2019-09-28 11:37 | NUR ---
Signature Attestation Statement: I DALE PRICE performed this procedure EECP on this patient. Addendum: 09/28/19 at 1137 by DALE PRICE [email or web address] Amended: Links added.
--- NOTE | 2019-09-28 11:38 | NUR ---
Signature Attestation Statement: I DALE PRICE performed this procedure EECP on this patient. Addendum: 09/28/19 at 1138 by DALE PRICE [email or web address] Amended: Links added.
--- NOTE | 2019-09-28 11:38 | NUR ---
Signature Attestation Statement: I DALE PRICE performed this procedure EECP on this patient. Addendum: 09/28/19 at 1139 by DALE PRICE [email or web address] Amended: Links added.
--- NOTE | 2019-09-28 11:45 | NUR ---
Signature Attestation Statement: I DALE PRICE performed this procedure EECP on this patient. Addendum: 09/28/19 at 1146 by DALE PRICE [email or web address] Amended: Links added.
== END | disposition home or self-care (01) ==
LOC: CHF HDHVI 09:58
PROVIDERS: ATTEND Internal Medicine Cardiovascular Disease
DX: I25.118 Atherosclerotic heart disease of native coronary artery with other forms of angina pectoris (principal); I10 Essential (primary) hypertension; J44.9 Chronic obstructive pulmonary disease, unspecified; H54.7 Unspecified visual loss; F17.200 Nicotine dependence, unspecified, uncomplicated; I67.9 Cerebrovascular disease, unspecified; I73.9 Peripheral vascular disease, unspecified; E78.00 Pure hypercholesterolemia, unspecified; Z98.61 Coronary angioplasty status
CPT/HCPCS: G0166 ×2

== ENCOUNTER → 2019-10-02 | Outpatient (CLI) | payer BC, MEDICARE ==
[2019-10-02 10:55] VITALS: BP 146/83
--- NOTE | 2019-10-02 12:44 | NUR ---
Signature Attestation Statement: Charito AZAR performed this procedure EECP on this patient. Addendum: 10/02/19 at 1245 by YENY AZAR HDHI2 Amended: Links added.
--- NOTE | 2019-10-02 12:49 | NUR ---
Signature Attestation Statement: Charito AZAR performed this procedure EECP on this patient. Addendum: 10/02/19 at 1250 by YENY AZAR HDHI2 Amended: Links added.
[2019-10-02 12:50] VITALS: BP 152/93
--- NOTE | 2019-10-02 12:51 | NUR ---
Signature Attestation Statement: Charito AZAR performed this procedure EECP on this patient. Addendum: 10/02/19 at 1252 by YENY AZAR HDHI2 Amended: Links added.
--- NOTE | 2019-10-02 12:52 | NUR ---
Signature Attestation Statement: Charito AZAR performed this procedure EECP on this patient. Addendum: 10/02/19 at 1253 by YENY AZAR HDHI2 Amended: Links added.
== END | disposition home or self-care (01) ==
LOC: CHF HDHVI 09:57
PROVIDERS: ATTEND Internal Medicine Cardiovascular Disease
DX: I25.118 Atherosclerotic heart disease of native coronary artery with other forms of angina pectoris (principal); I63.9 Cerebral infarction, unspecified; H54.7 Unspecified visual loss; F17.200 Nicotine dependence, unspecified, uncomplicated; I67.9 Cerebrovascular disease, unspecified; I10 Essential (primary) hypertension; I73.9 Peripheral vascular disease, unspecified; E78.00 Pure hypercholesterolemia, unspecified
CPT/HCPCS: G0166

== ENCOUNTER → 2019-11-27 | Outpatient (CLI) | payer BC, MEDICARE ==
[2019-11-27 12:28] VITALS: BP 164/82
[2019-11-27 12:30] VITALS: BP 134/79
--- NOTE | 2019-11-27 12:30 | NUR ---
Signature Attestation Statement: I DALE PRICE performed this procedure EECP on this patient. Addendum: 11/27/19 at 1231 by DALE PRICE [email or web address] Amended: Links added.
--- NOTE | 2019-11-27 12:30 | NUR ---
Signature Attestation Statement: I DALE PRICE performed this procedure EECP on this patient. Addendum: 11/27/19 at 1230 by DALE PRICE [email or web address] Amended: Links added.
--- NOTE | 2019-11-27 12:34 | NUR ---
Signature Attestation Statement: I DALE PRICE performed this procedure EECP on this patient. Addendum: 11/27/19 at 1235 by DALE PRICE [email or web address] Amended: Links added.
== END | disposition home or self-care (01) ==
LOC: CHF HDHVI 10:39
PROVIDERS: ATTEND Internal Medicine Cardiovascular Disease
DX: I25.118 Atherosclerotic heart disease of native coronary artery with other forms of angina pectoris (principal); I10 Essential (primary) hypertension; H54.7 Unspecified visual loss; I67.9 Cerebrovascular disease, unspecified; I63.9 Cerebral infarction, unspecified; I73.9 Peripheral vascular disease, unspecified; E78.00 Pure hypercholesterolemia, unspecified; F17.200 Nicotine dependence, unspecified, uncomplicated
CPT/HCPCS: G0166

== ENCOUNTER → 2019-12-04 | Outpatient (CLI) | payer BC ==
[2019-12-04 12:36] VITALS: BP 132/75
[2019-12-04 12:37] VITALS: BP 118/72
--- NOTE | 2019-12-04 12:37 | NUR ---
Signature Attestation Statement: I DALE PRICE performed this procedure EECP on this patient. Addendum: 12/04/19 at 1237 by DALE PRICE [email or web address] Amended: Links added.
--- NOTE | 2019-12-04 12:38 | NUR ---
Signature Attestation Statement: I DALE PRICE performed this procedure EECP on this patient. Addendum: 12/04/19 at 1238 by DALE PRICE [email or web address] Amended: Links added.
--- NOTE | 2019-12-04 12:38 | NUR ---
Signature Attestation Statement: I DALE PRICE performed this procedure EECP on this patient. Addendum: 12/04/19 at 1239 by DALE PRICE [email or web address] Amended: Links added.
--- NOTE | 2019-12-04 12:43 | NUR ---
Signature Attestation Statement: I DALE PRICE performed this procedure EECP on this patient. Addendum: 12/04/19 at 1243 by DALE PRICE [email or web address] Amended: Links added.
== END | disposition home or self-care (01) ==
LOC: CHF HDHVI 10:12
PROVIDERS: ATTEND Internal Medicine Cardiovascular Disease
DX: I25.118 Atherosclerotic heart disease of native coronary artery with other forms of angina pectoris (principal); E78.00 Pure hypercholesterolemia, unspecified; I67.9 Cerebrovascular disease, unspecified; I10 Essential (primary) hypertension; F17.200 Nicotine dependence, unspecified, uncomplicated
CPT/HCPCS: G0166

== ENCOUNTER → 2019-12-05 | Outpatient (CLI) | payer BC ==
[2019-12-05 10:37] VITALS: BP 158/81
--- NOTE | 2019-12-05 10:37 | NUR ---
Signature Attestation Statement: I DALE PRICE performed this procedure EECP on this patient. Addendum: 12/05/19 at 1038 by DALE PRICE HDHI2 Amended: Links added.
--- NOTE | 2019-12-05 11:12 | NUR ---
Signature Attestation Statement: I DALE PRICE performed this procedure EECP on this patient. Addendum: 12/05/19 at 1113 by DALE PRICE HDHI2 Amended: Links added.
[2019-12-05 11:13] VITALS: BP 131/82
--- NOTE | 2019-12-05 11:20 | NUR ---
Signature Attestation Statement: I DALE PRICE performed this procedure EECP on this patient. Addendum: 12/05/19 at 1120 by DALE PRICE HDHI2 Amended: Links added.
== END | disposition home or self-care (01) ==
LOC: CHF HDHVI 10:00
PROVIDERS: ATTEND Internal Medicine Cardiovascular Disease
DX: I25.118 Atherosclerotic heart disease of native coronary artery with other forms of angina pectoris (principal); J44.9 Chronic obstructive pulmonary disease, unspecified; I10 Essential (primary) hypertension; E78.00 Pure hypercholesterolemia, unspecified; I67.9 Cerebrovascular disease, unspecified; F17.200 Nicotine dependence, unspecified, uncomplicated
CPT/HCPCS: G0166

== ENCOUNTER → 2019-12-06 | Outpatient (CLI) | payer BC ==
[2019-12-06 11:39] VITALS: BP 145/82
[2019-12-06 11:40] VITALS: BP 131/78
--- NOTE | 2019-12-06 11:40 | NUR ---
Signature Attestation Statement: I DALE PRICE performed this procedure EECP on this patient. Addendum: 12/06/19 at 1140 by DALE PRICE HDHI2 Amended: Links added.
--- NOTE | 2019-12-06 11:40 | NUR ---
Signature Attestation Statement: I DALE PRICE performed this procedure EECP on this patient. Addendum: 12/06/19 at 1141 by DALE PRICE HDHI2 Amended: Links added.
--- NOTE | 2019-12-06 11:42 | NUR ---
Signature Attestation Statement: I DALE PRICE performed this procedure EECP on this patient. Addendum: 12/06/19 at 1142 by DALE PRICE HDHI2 Amended: Links added.
--- NOTE | 2019-12-06 11:50 | NUR ---
Signature Attestation Statement: I DALE PRICE performed this procedure EECP on this patient. Addendum: 12/06/19 at 1151 by DALE PRICE HDHI2 Amended: Links added.
== END | disposition home or self-care (01) ==
LOC: CHF HDHVI 10:10
PROVIDERS: ATTEND Internal Medicine Cardiovascular Disease
DX: I25.118 Atherosclerotic heart disease of native coronary artery with other forms of angina pectoris (principal); I10 Essential (primary) hypertension
CPT/HCPCS: G0166

== ENCOUNTER → 2019-12-07 | Outpatient (CLI) | payer BC ==
[2019-12-07 10:27] VITALS: BP 144/76
--- NOTE | 2019-12-07 10:27 | NUR ---
Signature Attestation Statement: I DALE PRICE performed this procedure EECP on this patient. Addendum: 12/07/19 at 1028 by DALE PRICE [email or web address] Amended: Links added.
--- NOTE | 2019-12-07 10:29 | NUR ---
Signature Attestation Statement: I DALE PRICE performed this procedure EECP on this patient. Addendum: 12/07/19 at 1029 by DALE PRICE [email or web address] Amended: Links added.
[2019-12-07 11:02] VITALS: BP 143/79
--- NOTE | 2019-12-07 11:02 | NUR ---
Signature Attestation Statement: I DALE PRICE performed this procedure EECP on this patient. Addendum: 12/07/19 at 1102 by DALE PRICE HDHI2 Amended: Links added.
--- NOTE | 2019-12-07 11:07 | NUR ---
Signature Attestation Statement: I DALE PRICE performed this procedure EECP on this patient. Addendum: 12/07/19 at 1108 by DALE PRICE [email or web address] Amended: Links added.
== END | disposition home or self-care (01) ==
LOC: CHF HDHVI 09:59
PROVIDERS: ATTEND Internal Medicine Cardiovascular Disease
DX: I25.118 Atherosclerotic heart disease of native coronary artery with other forms of angina pectoris (principal)
CPT/HCPCS: G0166

== ENCOUNTER → 2019-12-08 | Outpatient (CLI) | payer BC ==
[2019-12-08 10:32] VITALS: BP 156/84
--- NOTE | 2019-12-08 10:32 | NUR ---
Signature Attestation Statement: I DALE PRICE performed this procedure EECP on this patient. Addendum: 12/08/19 at 1033 by DALE PRICE HDHI2 Amended: Links added.
--- NOTE | 2019-12-08 10:34 | NUR ---
Signature Attestation Statement: I DALE PRICE performed this procedure EECP on this patient. Addendum: 12/08/19 at 1035 by DALE PRICE [email or web address] Amended: Links added.
[2019-12-08 11:11] VITALS: BP 137/81
--- NOTE | 2019-12-08 11:11 | NUR ---
Signature Attestation Statement: I DALE PRICE performed this procedure EECP on this patient. Addendum: 12/08/19 at 1111 by DALE PRICE HDHI2 Amended: Links added.
--- NOTE | 2019-12-08 11:19 | NUR ---
Signature Attestation Statement: I DALE PRICE performed this procedure EECP on this patient. Addendum: 12/08/19 at 1119 by DALE PRICE [email or web address] Amended: Links added.
== END | disposition home or self-care (01) ==
LOC: Rad HDHVI 09:57
PROVIDERS: ATTEND Internal Medicine
DX: I25.118 Atherosclerotic heart disease of native coronary artery with other forms of angina pectoris (principal)
CPT/HCPCS: G0166

== ENCOUNTER → 2019-12-11 | Outpatient (CLI) | payer BC ==
[2019-12-11 10:16] VITALS: BP 171/89
--- NOTE | 2019-12-11 10:16 | NUR ---
Signature Attestation Statement: I DALE PRICE performed this procedure EECP on this patient. Addendum: 12/11/19 at 1017 by DALE PRICE [email or web address] Amended: Links added.
--- NOTE | 2019-12-11 10:17 | NUR ---
Signature Attestation Statement: I DALE PRICE performed this procedure EECP on this patient. Addendum: 12/11/19 at 1018 by DALE PRICE HDHI2 Amended: Links added.
--- NOTE | 2019-12-11 10:54 | NUR ---
Signature Attestation Statement: I DALE PRICE performed this procedure EECP on this patient. Addendum: 12/11/19 at 1055 by DALE PRICE HDHI2 Amended: Links added.
[2019-12-11 10:55] VITALS: BP 138/79
--- NOTE | 2019-12-11 11:04 | NUR ---
Signature Attestation Statement: I DALE PRICE performed this procedure EECP on this patient. Addendum: 12/11/19 at 1104 by DALE PRICE HDHI2 Amended: Links added.
== END | disposition home or self-care (01) ==
LOC: CHF HDHVI 09:51
PROVIDERS: ATTEND Internal Medicine Cardiovascular Disease
DX: I25.118 Atherosclerotic heart disease of native coronary artery with other forms of angina pectoris (principal); E78.00 Pure hypercholesterolemia, unspecified; I10 Essential (primary) hypertension; I73.9 Peripheral vascular disease, unspecified; I63.9 Cerebral infarction, unspecified; I67.9 Cerebrovascular disease, unspecified; H54.7 Unspecified visual loss; F17.200 Nicotine dependence, unspecified, uncomplicated
CPT/HCPCS: G0166

== ENCOUNTER → 2019-12-13 | Outpatient (CLI) | payer BC ==
[2019-12-13 10:29] VITALS: BP 172/98
--- NOTE | 2019-12-13 10:29 | NUR ---
Signature Attestation Statement: I DALE PRICE performed this procedure EECP on this patient. Addendum: 12/13/19 at 1029 by DALE PRICE [email or web address] Amended: Links added.
--- NOTE | 2019-12-13 10:29 | NUR ---
Signature Attestation Statement: I DALE PRICE performed this procedure EECP on this patient. Addendum: 12/13/19 at 1030 by DALE PRICE [email or web address] Amended: Links added.
[2019-12-13 11:06] VITALS: BP 150/83
--- NOTE | 2019-12-13 11:06 | NUR ---
Signature Attestation Statement: I DALE PRICE performed this procedure EECP on this patient. Addendum: 12/13/19 at 1106 by DALE PRICE HDHI2 Amended: Links added.
--- NOTE | 2019-12-13 11:17 | NUR ---
Signature Attestation Statement: I DALE PRICE performed this procedure EECP on this patient. Addendum: 12/13/19 at 1118 by DALE PRICE HDHI2 Amended: Links added.
== END | disposition home or self-care (01) ==
LOC: CHF HDHVI 10:01
PROVIDERS: ATTEND Internal Medicine Cardiovascular Disease
DX: I25.118 Atherosclerotic heart disease of native coronary artery with other forms of angina pectoris (principal); E78.00 Pure hypercholesterolemia, unspecified; H54.7 Unspecified visual loss; I63.9 Cerebral infarction, unspecified; I67.9 Cerebrovascular disease, unspecified; I10 Essential (primary) hypertension; I73.9 Peripheral vascular disease, unspecified; F17.200 Nicotine dependence, unspecified, uncomplicated
CPT/HCPCS: G0166

== ENCOUNTER → 2019-12-14 | Outpatient (CLI) | payer BC ==
[2019-12-14 10:41] VITALS: BP 158/81
--- NOTE | 2019-12-14 10:42 | NUR ---
Signature Attestation Statement: I DALE PRICE performed this procedure EECP on this patient. Addendum: 12/14/19 at 1042 by DALE PRICE HDHI2 Amended: Links added.
[2019-12-14 11:18] VITALS: BP 142/80
--- NOTE | 2019-12-14 11:18 | NUR ---
Signature Attestation Statement: I DALE PRICE performed this procedure EECP on this patient. Addendum: 12/14/19 at 1118 by DALE PRICE [email or web address] Amended: Links added.
--- NOTE | 2019-12-14 11:30 | NUR ---
Signature Attestation Statement: I DALE PRICE performed this procedure EECP on this patient. Addendum: 12/14/19 at 1130 by DALE PRICE [email or web address] Amended: Links added.
== END | disposition home or self-care (01) ==
LOC: CHF HDHVI 09:57
PROVIDERS: ATTEND Internal Medicine Cardiovascular Disease
DX: I25.110 Atherosclerotic heart disease of native coronary artery with unstable angina pectoris (principal); H54.7 Unspecified visual loss; F17.200 Nicotine dependence, unspecified, uncomplicated; I10 Essential (primary) hypertension; I73.9 Peripheral vascular disease, unspecified; I63.9 Cerebral infarction, unspecified; E78.00 Pure hypercholesterolemia, unspecified; I67.9 Cerebrovascular disease, unspecified
CPT/HCPCS: G0166

== ENCOUNTER → 2019-12-18 | Outpatient (CLI) | payer BC ==
[2019-12-18 10:28] VITALS: BP 173/89
--- NOTE | 2019-12-18 10:29 | NUR ---
Signature Attestation Statement: I DALE PRICE performed this procedure EECP on this patient. Addendum: 12/18/19 at 1029 by DALE PRICE [email or web address] Amended: Links added.
[2019-12-18 10:59] VITALS: BP 152/85
--- NOTE | 2019-12-18 10:59 | NUR ---
Signature Attestation Statement: I DALE PRICE performed this procedure EECP on this patient. Addendum: 12/18/19 at 1059 by DALE PRICE [email or web address] Amended: Links added.
--- NOTE | 2019-12-18 11:07 | NUR ---
Signature Attestation Statement: I DALE PRICE performed this procedure EECP on this patient. Addendum: 12/18/19 at 1108 by DALE PRICE [email or web address] Amended: Links added.
== END | disposition home or self-care (01) ==
LOC: CHF HDHVI 09:46
PROVIDERS: ATTEND Internal Medicine Cardiovascular Disease
DX: I25.118 Atherosclerotic heart disease of native coronary artery with other forms of angina pectoris (principal); I10 Essential (primary) hypertension; I73.9 Peripheral vascular disease, unspecified; E78.00 Pure hypercholesterolemia, unspecified; H54.7 Unspecified visual loss; F17.200 Nicotine dependence, unspecified, uncomplicated; Z86.73 Personal history of transient ischemic attack (TIA), and cerebral infarction without residual deficits
CPT/HCPCS: G0166

== ENCOUNTER → 2019-12-19 | Outpatient (CLI) | payer BC ==
[2019-12-19 10:40] VITALS: BP 174/87
--- NOTE | 2019-12-19 10:40 | NUR ---
Signature Attestation Statement: I DALE PRICE performed this procedure EECP on this patient. Addendum: 12/19/19 at 1041 by DALE PRICE [email or web address] Amended: Links added.
--- NOTE | 2019-12-19 11:16 | NUR ---
Signature Attestation Statement: I DALE PRICE performed this procedure EECP on this patient. Addendum: 12/19/19 at 1116 by DALE PRICE [email or web address] Amended: Links added.
[2019-12-19 11:17] VITALS: BP 146/90
--- NOTE | 2019-12-19 11:28 | NUR ---
Signature Attestation Statement: I DALE PRICE performed this procedure EECP on this patient. Addendum: 12/19/19 at 1128 by DAEL PRICE [email or web address] Amended: Links added.
== END | disposition home or self-care (01) ==
LOC: CHF HDHVI 09:57
PROVIDERS: ATTEND Internal Medicine Cardiovascular Disease
DX: I25.118 Atherosclerotic heart disease of native coronary artery with other forms of angina pectoris (principal); E78.00 Pure hypercholesterolemia, unspecified; H54.7 Unspecified visual loss; I73.9 Peripheral vascular disease, unspecified; I10 Essential (primary) hypertension; F17.200 Nicotine dependence, unspecified, uncomplicated; Z86.73 Personal history of transient ischemic attack (TIA), and cerebral infarction without residual deficits
CPT/HCPCS: G0166

== ENCOUNTER → 2019-12-20 | Outpatient (CLI) | payer BC ==
--- NOTE | 2019-12-20 09:16 | NUR ---
Signature Attestation Statement: I DALE PRICE performed this procedure EECP on this patient. Addendum: 12/20/19 at 0916 by DALE PRICE [email or web address] Amended: Links added.
[2019-12-20 09:17] VITALS: BP 127/76
--- NOTE | 2019-12-20 09:18 | NUR ---
Signature Attestation Statement: I DALE PRICE performed this procedure EECP on this patient. Addendum: 12/20/19 at 0918 by DALE PRICE [email or web address] Amended: Links added.
[2019-12-20 09:52] VITALS: BP 127/76
--- NOTE | 2019-12-20 09:52 | NUR ---
Signature Attestation Statement: I DALE PRICE performed this procedure EECP on this patient. Addendum: 12/20/19 at 0952 by DALE PRICE [email or web address] Amended: Links added.
--- NOTE | 2019-12-20 10:03 | NUR ---
Signature Attestation Statement: I DALE PRICE performed this procedure EECP on this patient. Addendum: 12/20/19 at 1003 by DALE PRICE HDHI2 Amended: Links added.
== END | disposition home or self-care (01) ==
LOC: CHF HDHVI 08:45
PROVIDERS: ATTEND Internal Medicine Cardiovascular Disease
DX: I25.118 Atherosclerotic heart disease of native coronary artery with other forms of angina pectoris (principal); H54.7 Unspecified visual loss; I73.9 Peripheral vascular disease, unspecified; I10 Essential (primary) hypertension; E78.00 Pure hypercholesterolemia, unspecified; F17.200 Nicotine dependence, unspecified, uncomplicated; Z86.73 Personal history of transient ischemic attack (TIA), and cerebral infarction without residual deficits
CPT/HCPCS: G0166

== ENCOUNTER → 2019-12-21 | Outpatient (CLI) | payer BC ==
[2019-12-21 09:22] VITALS: BP 149/77
--- NOTE | 2019-12-21 09:23 | NUR ---
Signature Attestation Statement: I DALE PRICE performed this procedure EECP on this patient. Addendum: 12/21/19 at 0923 by DALE PRICE [email or web address] Amended: Links added.
--- NOTE | 2019-12-21 09:23 | NUR ---
Signature Attestation Statement: I DALE PRICE performed this procedure EECP on this patient. Addendum: 12/21/19 at 0924 by DALE PRICE [email or web address] Amended: Links added.
--- NOTE | 2019-12-21 10:09 | NUR ---
Signature Attestation Statement: I DALE PRICE performed this procedure EECP on this patient. Addendum: 12/21/19 at 1010 by DALE PRICE HDHI2 Amended: Links added.
[2019-12-21 10:10] VITALS: BP 139/80
== END | disposition home or self-care (01) ==
LOC: CHF HDHVI 08:59
PROVIDERS: ATTEND Internal Medicine Cardiovascular Disease
DX: I25.118 Atherosclerotic heart disease of native coronary artery with other forms of angina pectoris (principal); I73.9 Peripheral vascular disease, unspecified; E78.00 Pure hypercholesterolemia, unspecified; I10 Essential (primary) hypertension; F17.200 Nicotine dependence, unspecified, uncomplicated; H54.7 Unspecified visual loss; Z86.73 Personal history of transient ischemic attack (TIA), and cerebral infarction without residual deficits
CPT/HCPCS: G0166

== ENCOUNTER → 2019-12-22 | Outpatient (CLI) | payer BC ==
[2019-12-22 09:20] VITALS: BP 134/72
--- NOTE | 2019-12-22 09:20 | NUR ---
Signature Attestation Statement: I DALE PRICE performed this procedure EECP on this patient. Addendum: 12/22/19 at 0921 by DALE PRICE [email or web address] Amended: Links added.
[2019-12-22 09:59] VITALS: BP 128/80
--- NOTE | 2019-12-22 09:59 | NUR ---
Signature Attestation Statement: I DALE PRICE performed this procedure EECP on this patient. Addendum: 12/22/19 at 0959 by DALE PRICE HDHI2 Amended: Links added.
--- NOTE | 2019-12-22 10:11 | NUR ---
Signature Attestation Statement: I DALE PRICE performed this procedure EECP on this patient. Addendum: 12/22/19 at 1011 by DALE PRICE HDHI2 Amended: Links added.
== END | disposition home or self-care (01) ==
LOC: CHF HDHVI 08:59
PROVIDERS: ATTEND Internal Medicine Cardiovascular Disease
DX: I25.118 Atherosclerotic heart disease of native coronary artery with other forms of angina pectoris (principal); R06.02 Shortness of breath; J44.9 Chronic obstructive pulmonary disease, unspecified; I10 Essential (primary) hypertension; H54.7 Unspecified visual loss; I73.9 Peripheral vascular disease, unspecified; E78.00 Pure hypercholesterolemia, unspecified; F17.200 Nicotine dependence, unspecified, uncomplicated; I67.9 Cerebrovascular disease, unspecified; Z95.5 Presence of coronary angioplasty implant and graft; Z86.73 Personal history of transient ischemic attack (TIA), and cerebral infarction without residual deficits
CPT/HCPCS: G0166

== ENCOUNTER → 2019-12-26 | Outpatient (CLI) | payer BC ==
[2019-12-26 09:41] VITALS: BP 137/75
[2019-12-26 10:17] VITALS: BP 131/78
== END | disposition home or self-care (01) ==
LOC: CHF HDHVI 09:04
PROVIDERS: ATTEND Internal Medicine Cardiovascular Disease
DX: I25.118 Atherosclerotic heart disease of native coronary artery with other forms of angina pectoris (principal); H54.7 Unspecified visual loss; F17.200 Nicotine dependence, unspecified, uncomplicated; I10 Essential (primary) hypertension; I73.9 Peripheral vascular disease, unspecified; E78.00 Pure hypercholesterolemia, unspecified; I67.9 Cerebrovascular disease, unspecified; Z86.73 Personal history of transient ischemic attack (TIA), and cerebral infarction without residual deficits
CPT/HCPCS: G0166

== ENCOUNTER → 2020-05-28 | Outpatient (CLI) | payer BC | END | disposition home or self-care (01) | LOC: Rad HDHVI 09:49 | PROVIDERS: ATTEND Internal Medicine Cardiovascular Disease | DX: R06.02 Shortness of breath (principal); E78.5 Hyperlipidemia, unspecified; J44.9 Chronic obstructive pulmonary disease, unspecified | CPT/HCPCS: 93306 ==

== ENCOUNTER → 2020-05-30 | Outpatient (CLI) | payer BC ==
[~2020-05-30] VITALS: Ht 165.1 cm; Wt 73.9 kg
[~2020-05-30] MED LIST changes: +ADENOSINE 62 MG in GIVE UN-DILUTED 0 ML IV ONE; +ADENOSINE 90 MG/30 ML INJ IV ONE
== END | disposition home or self-care (01) ==
LOC: Rad HDHVI 09:01
PROVIDERS: ATTEND Internal Medicine Cardiovascular Disease
DX: I25.10 Atherosclerotic heart disease of native coronary artery without angina pectoris (principal); I10 Essential (primary) hypertension; E78.00 Pure hypercholesterolemia, unspecified; F17.210 Nicotine dependence, cigarettes, uncomplicated; Z95.2 Presence of prosthetic heart valve; Z82.49 Family history of ischemic heart disease and other diseases of the circulatory system
CPT/HCPCS: 78452; 93005; 96374; 96375; A9500; J0153

== ENCOUNTER → 2020-06-20 | Outpatient (CLI) | payer BC ==
[~2020-06-20] MED LIST changes: -ADENOSINE 62 MG in GIVE UN-DILUTED 0 ML IV ONE; -ADENOSINE 90 MG/30 ML INJ IV ONE
[2020-06-20 14:22] LABS: Basophils # (auto) 0 10 ^3/uL (0-0.2); Basophils % (auto) 0.6 % (0.0-2.0); Eosinophils # (auto) 0.1 10 ^3/uL (0-0.8); Eosinophils % (auto) 1.6 % (0.0-7.0); Hemoglobin 13.2 g/dL (12.2-16.2); Lymphocytes # (auto) 2.4 10 ^3/uL (0.4-5.4); Lymphocytes % (auto) 33.8 % (10.0-50.0); Mean Corpuscular Hemoglobin 30.5 pg (28.0-32.0); Mean Corpuscular Hgb Conc. 32.9 g/dL (32.0-36.0); Mean Corpuscular Volume 92.6 fL (80.0-100.0); Monocytes # (auto) 0.4 10 ^3/uL (0-1.3); Monocytes % (auto) 5.9 % (0.0-12.0); Neutrophils # (auto) 4.1 10 ^3/uL (1.6-8.6); Neutrophils % (auto) 58.1 % (37.0-80.0); Nucleated Red Blood Cells % 0.1 %; Platelet Count (auto) 228 10^3/uL (140-450); Red Blood Cells 4.31 10^6/uL (4.0-5.20); Red Cell Distribution Width 14.6 % (11.8-14.3)
== END | disposition home or self-care (01) ==
LOC: LAB 09:39
PROVIDERS: ATTEND Internal Medicine Cardiovascular Disease
DX: I25.118 Atherosclerotic heart disease of native coronary artery with other forms of angina pectoris (principal); I50.23 Acute on chronic systolic (congestive) heart failure; D64.9 Anemia, unspecified; R73.01 Impaired fasting glucose
CPT/HCPCS: 36415; 82947; 83880; 85025

== ENCOUNTER → 2020-06-24 | Outpatient (CLI) | payer BC | END | disposition home or self-care (01) | LOC: Rad HDHVI 08:55 | PROVIDERS: ATTEND Internal Medicine Cardiovascular Disease | DX: K44.9 Diaphragmatic hernia without obstruction or gangrene (principal); R91.1 Solitary pulmonary nodule; I70.0 Atherosclerosis of aorta; K57.30 Diverticulosis of large intestine without perforation or abscess without bleeding; M43.16 Spondylolisthesis, lumbar region; M47.819 Spondylosis without myelopathy or radiculopathy, site unspecified; N28.89 Other specified disorders of kidney and ureter; Z90.5 Acquired absence of kidney | CPT/HCPCS: 74176 ==

== ENCOUNTER → 2021-02-03 | Outpatient (CLI) | payer BC ==
[2021-02-03 12:35] LABS: Basophils # (auto) 0 10 ^3/uL (0-0.2); Basophils % (auto) 0.6 % (0.0-2.0); Eosinophils # (auto) 0.1 10 ^3/uL (0-0.8); Eosinophils % (auto) 1.7 % (0.0-7.0); Hematocrit 39.5 % (36.0-46.0); Hemoglobin 13.4 g/dL (12.2-16.2); Lymphocytes # (auto) 2.3 10 ^3/uL (0.4-5.4); Lymphocytes % (auto) 35.7 % (10.0-50.0); Mean Corpuscular Hemoglobin 31.3 pg (28.0-32.0); Mean Corpuscular Volume 91.9 fL (80.0-100.0); Monocytes # (auto) 0.4 10 ^3/uL (0-1.3); Neutrophils # (auto) 3.5 10 ^3/uL (1.6-8.6); Nucleated Red Blood Cells % 0.1 %; Platelet Count (auto) 261 10^3/uL (140-450); Red Cell Distribution Width 13.7 % (11.8-14.3); White Blood Cell 6.4 10^3/uL (4.4-10.8)
[2021-02-03 12:42] LABS: Urine Blood TRACE /uL (Negative); Urine Specific Gravity 1.019 (1.001-1.035)
[2021-02-03 12:44] LABS: Albumin 3.6 g/dL (3.4-5.0); Calcium 9.2 mg/dL (8.5-10.1); Potassium 3.7 mmol/L (3.5-5.1)
[2021-02-03 12:49] LABS: BUN/Creatinine Ratio 24.8; Bilirubin, Total 0.3 mg/dL (0.2-1.0); Total Protein 7.3 g/dL (6.4-8.2)
[2021-02-03 12:51] LABS: Free T4 (Free Thyroxine) 1.4 ng/dL (0.89-1.76)
== END | disposition home or self-care (01) ==
LOC: LAB 08:23
PROVIDERS: ATTEND Internal Medicine Cardiovascular Disease
DX: D51.3 Other dietary vitamin B12 deficiency anemia (principal); I10 Essential (primary) hypertension; E11.9 Type 2 diabetes mellitus without complications; E55.9 Vitamin D deficiency, unspecified; D64.9 Anemia, unspecified; R00.2 Palpitations; R53.1 Weakness; R30.0 Dysuria
CPT/HCPCS: 36415; 80053; 80061; 81003; 82306; 82607; 83036; 84439; 84443; 85025

== ENCOUNTER → 2021-12-30 | Outpatient (CLI) | payer OTHER ==
[~2021-12-30] MED LIST changes: +READI-CAT 2 (BARIUM SULF)(VANILLA SMOOTHIE) 450ML ONE; +SODIUM CHLORIDE 0.9% 500 ML IV ONE
[2021-12-30 08:38] VITALS: BP 139/76
[2021-12-30 10:00] VITALS: BP 140/75
[2021-12-30 11:15] VITALS: BP 141/74
[2021-12-30 11:45] VITALS: BP 126/77
[2021-12-30 12:42] VITALS: BP 126/75
== END | disposition home or self-care (01) ==
LOC: Rad HDHVI 08:31
PROVIDERS: ATTEND Internal Medicine Cardiovascular Disease
DX: C64.9 Malignant neoplasm of unspecified kidney, except renal pelvis (principal); E86.0 Dehydration; R94.4 Abnormal results of kidney function studies
CPT/HCPCS: 36415; 74177; 82565; 84520; 96360; 96361; G0463; J7040

== ENCOUNTER → 2022-01-06 | Outpatient (CLI) | payer OTHER ==
[~2022-01-06] VITALS: Ht 165.1 cm; Wt 72.6 kg
[~2022-01-06] MED LIST changes: +ADENOSINE 61 MG in GIVE UN-DILUTED 0 ML IV ONE; +ADENOSINE 90 MG/30 ML INJ IV ONE; -READI-CAT 2 (BARIUM SULF)(VANILLA SMOOTHIE) 450ML ONE; -SODIUM CHLORIDE 0.9% 500 ML IV ONE
== END | disposition home or self-care (01) ==
LOC: Rad HDHVI 08:20
PROVIDERS: ATTEND Internal Medicine Cardiovascular Disease
DX: I10 Essential (primary) hypertension (principal); I25.10 Atherosclerotic heart disease of native coronary artery without angina pectoris; E78.5 Hyperlipidemia, unspecified; E11.9 Type 2 diabetes mellitus without complications; F17.210 Nicotine dependence, cigarettes, uncomplicated; Z82.49 Family history of ischemic heart disease and other diseases of the circulatory system
CPT/HCPCS: 78452; 93005; 96374; 96375; A9500; J0153

== ENCOUNTER → 2022-01-07 | Outpatient (CLI) | payer OTHER ==
[~2022-01-07] MED LIST changes: -ADENOSINE 61 MG in GIVE UN-DILUTED 0 ML IV ONE; -ADENOSINE 90 MG/30 ML INJ IV ONE
== END | disposition home or self-care (01) ==
LOC: Rad HDHVI 08:52
PROVIDERS: ATTEND Internal Medicine Cardiovascular Disease
DX: I08.1 Rheumatic disorders of both mitral and tricuspid valves (principal); R06.02 Shortness of breath; R00.2 Palpitations
CPT/HCPCS: 93306

== ENCOUNTER 2022-03-12 06:04 | Emergency (ER) | payer OTHER ==
[~2022-03-12] VITALS: Ht 165.1 cm; Wt 72.6 kg
[2022-03-12 07:25] LABS: Basophils # (auto) 0.1 10 ^3/uL (0-0.2); Basophils % (auto) 0.6 % (0.0-2.0); Eosinophils # (auto) 0.1 10 ^3/uL (0-0.8); Eosinophils % (auto) 1.3 % (0.0-7.0); Hematocrit 38.6 % (36.0-46.0); Hemoglobin 13.6 g/dL (12.2-16.2); Lymphocytes # (auto) 2.3 10 ^3/uL (0.4-5.4); Lymphocytes % (auto) 26.9 % (10.0-50.0); Mean Corpuscular Hemoglobin 31.7 pg (28.0-32.0); Mean Corpuscular Hgb Conc. 35.3 g/dL (32.0-36.0); Mean Corpuscular Volume 89.8 fL (80.0-100.0); Monocytes # (auto) 0.7 10 ^3/uL (0-1.3); Monocytes % (auto) 8.6 % (0.0-12.0); Neutrophils # (auto) 5.5 10 ^3/uL (1.6-8.6); Neutrophils % (auto) 62.6 % (37.0-80.0); Nucleated Red Blood Cells % 0.1 %; White Blood Cell 8.7 10^3/uL (4.4-10.8)
[2022-03-12 09:00] LABS: BUN/Creatinine Ratio 18.7; Calcium 8.8 mg/dL (8.5-10.1); Potassium 4.1 mmol/L (3.5-5.1); Uric Acid 8.7 mg/dL (2.6-6.0)
[2022-03-12] MEDS ORDERED: ACETAMINOPHEN 500 MG TAB PO ONE (09:30)
[2022-03-12] MEDS ORDERED: methylPREDNISolone SOD SUCC 125 MG/2 ML VL IM ONE (09:30)
[2022-03-12] MEDS ORDERED: TRAM-297 PO (09:35)
[2022-03-12] MEDS ORDERED: PRED20TA2 PO (09:35)
[2022-03-12 09:52] VITALS: BP 111/67
== END 2022-03-12 10:16 | disposition home or self-care (01) ==
LOC: ER 06:04
DX: M10.071 Idiopathic gout, right ankle and foot (principal); I12.9 Hypertensive chronic kidney disease with stage 1 through stage 4 chronic kidney disease, or unspecified chronic kidney disease; N18.2 Chronic kidney disease, stage 2 (mild); E78.5 Hyperlipidemia, unspecified; Z88.2 Allergy status to sulfonamides; Z88.8 Allergy status to other drugs, medicaments and biological substances
CPT/HCPCS: 36415; 73630; 80048; 83605; 84550; 85025; 96372; 99284; J2930

== ENCOUNTER → 2022-05-06 | Outpatient (CLI) | payer OTHER ==
[~2022-05-06] MED LIST changes: +PRED20TA2 PO; +TRAM-297 PO
[2022-05-06 11:50] LABS: Basophils # (auto) 0 10 ^3/uL (0-0.2); Basophils % (auto) 0.7 % (0.0-2.0); Eosinophils # (auto) 0 10 ^3/uL (0-0.8); Eosinophils % (auto) 0.5 % (0.0-7.0); Hematocrit 41.4 % (36.0-46.0); Hemoglobin 13.4 g/dL (12.2-16.2); Lymphocytes # (auto) 1.8 10 ^3/uL (0.4-5.4); Lymphocytes % (auto) 38.8 % (10.0-50.0); Mean Corpuscular Hemoglobin 29.3 pg (28.0-32.0); Mean Corpuscular Hgb Conc. 32.4 g/dL (32.0-36.0); Mean Corpuscular Volume 90.4 fL (80.0-100.0); Monocytes # (auto) 0.6 10 ^3/uL (0-1.3); Neutrophils # (auto) 2.1 10 ^3/uL (1.6-8.6); Nucleated Red Blood Cells % 0.2 %; Red Blood Cells 4.58 10^6/uL (4.0-5.20); Red Cell Distribution Width 14.6 % (11.8-14.3); Urine Blood 2+ /uL (Negative); Urine Specific Gravity 1.026 (1.001-1.035); White Blood Cell 4.6 10^3/uL (4.4-10.8)
[2022-05-06 12:03] LABS: Potassium 3.7 mmol/L (3.5-5.1)
[2022-05-06 12:14] LABS: Free T4 (Free Thyroxine) 1.38 ng/dL (0.89-1.76)
[2022-05-06 12:18] LABS: Albumin 3.4 g/dL (3.4-5.0); BUN/Creatinine Ratio 15.9; Bilirubin, Total 0.4 mg/dL (0.2-1.0); Calcium 8.8 mg/dL (8.5-10.1); Total Protein 7.4 g/dL (6.4-8.2)
== END | disposition home or self-care (01) ==
LOC: LAB 08:22
PROVIDERS: ATTEND Internal Medicine Cardiovascular Disease
DX: D51.3 Other dietary vitamin B12 deficiency anemia (principal); D64.9 Anemia, unspecified; E11.9 Type 2 diabetes mellitus without complications; E55.9 Vitamin D deficiency, unspecified; I10 Essential (primary) hypertension; R00.2 Palpitations; R53.1 Weakness; R30.0 Dysuria
CPT/HCPCS: 36415; 80053; 80061; 81003; 82306; 82607; 83036; 84439; 84443; 85025; 87086

== ENCOUNTER → 2022-10-26 | Outpatient (CLI) | payer OTHER | END | disposition home or self-care (01) | LOC: Rad HDHVI 12:49 | PROVIDERS: ATTEND Internal Medicine Cardiovascular Disease | DX: I08.3 Combined rheumatic disorders of mitral, aortic and tricuspid valves (principal); I10 Essential (primary) hypertension; R06.02 Shortness of breath | CPT/HCPCS: 93306 ==

== ENCOUNTER → 2023-02-09 | Outpatient (CLI) | payer OTHER ==
[~2023-02-09] VITALS: Ht 165.1 cm; Wt 68.5 kg
[~2023-02-09] MED LIST changes: +ADENOSINE 58 MG in GIVE UN-DILUTED 0 ML IV ONE; +ADENOSINE 90 MG/30 ML INJ IV ONE
== END | disposition home or self-care (01) ==
LOC: Rad HDHVI 08:33
PROVIDERS: ATTEND Internal Medicine Cardiovascular Disease
DX: I25.10 Atherosclerotic heart disease of native coronary artery without angina pectoris (principal); I10 Essential (primary) hypertension; E78.00 Pure hypercholesterolemia, unspecified; E11.9 Type 2 diabetes mellitus without complications; F17.210 Nicotine dependence, cigarettes, uncomplicated; Z82.49 Family history of ischemic heart disease and other diseases of the circulatory system
CPT/HCPCS: 78452; 93005; 96374; 96375; A9500; J0153

== ENCOUNTER → 2023-02-15 | Outpatient (CLI) | payer OTHER ==
[~2023-02-15] MED LIST changes: -ADENOSINE 58 MG in GIVE UN-DILUTED 0 ML IV ONE; -ADENOSINE 90 MG/30 ML INJ IV ONE
== END | disposition home or self-care (01) ==
LOC: Rad HDHVI 14:44
PROVIDERS: ATTEND Internal Medicine Cardiovascular Disease
DX: I65.21 Occlusion and stenosis of right carotid artery (principal); I10 Essential (primary) hypertension
CPT/HCPCS: 93880

== ENCOUNTER → 2023-07-16 | Outpatient (CLI) | payer OTHER ==
[~2023-07-16] MED LIST changes: +SODIUM CHLORIDE 0.9% 500 ML IV ONE
[2023-07-16 09:43] VITALS: BP 114/72; PULSE 59; RESP 16; O2SAT 98
[2023-07-16 12:08] VITALS: BP 136/74; PULSE 53; RESP 16; O2SAT 100
== END | disposition home or self-care (01) ==
LOC: Rad HDHVI 09:32
PROVIDERS: ATTEND Internal Medicine Cardiovascular Disease
DX: C79.00 Secondary malignant neoplasm of unspecified kidney and renal pelvis (principal); M47.816 Spondylosis without myelopathy or radiculopathy, lumbar region; M43.8X4 Other specified deforming dorsopathies, thoracic region
CPT/HCPCS: 74177; G0463; J7040; Q9967; 96360; 96361

== ENCOUNTER → 2024-02-28 | Outpatient (CLI) | payer MEDICARE, OTHER ==
[~2024-02-28] VITALS: Ht 165.1 cm; Wt 68.0 kg
[~2024-02-28] MED LIST changes: +ADENOSINE 57 MG in GIVE UN-DILUTED 0 ML IV ONE; +ADENOSINE 90 MG/30 ML INJ IV ONE; -SODIUM CHLORIDE 0.9% 500 ML IV ONE
== END | disposition home or self-care (01) ==
LOC: Rad HDHVI 09:22
PROVIDERS: ATTEND Internal Medicine Cardiovascular Disease
DX: I49.3 Ventricular premature depolarization (principal); E11.9 Type 2 diabetes mellitus without complications; I10 Essential (primary) hypertension; E78.00 Pure hypercholesterolemia, unspecified; J44.9 Chronic obstructive pulmonary disease, unspecified; I25.10 Atherosclerotic heart disease of native coronary artery without angina pectoris; C64.9 Malignant neoplasm of unspecified kidney, except renal pelvis; F17.210 Nicotine dependence, cigarettes, uncomplicated; Z82.49 Family history of ischemic heart disease and other diseases of the circulatory system; Z79.02 Long term (current) use of antithrombotics/antiplatelets; Z79.899 Other long term (current) drug therapy
CPT/HCPCS: 78452; 93005; 96374; 96375; A9500; J0153

== ENCOUNTER 2025-05-21 08:58 | Outpatient (CLI) | payer MEDICARE, OTHER ==
[~2025-05-21 08:58] MED LIST changes: -ADENOSINE 57 MG in GIVE UN-DILUTED 0 ML IV ONE; -ADENOSINE 90 MG/30 ML INJ IV ONE
--- NOTE | 2025-05-21 13:59 | DVHSR ---
APPROVED REPORT EXAM: Two-dimensional and M-mode echocardiogram with Doppler and color Doppler. DIMENSIONS LVDd3.5 (3.8-5.7cm)LA (2D)3.1 (1.9-4.0cm)Aortic Root2.9 (2.0-3.7cm) LVDs2.3 (2.5-4.0cm)LA (MM) (1.9-4.0cm)Aortic Cusp Exc1.7 (1.5-2.0cm) EF (%) 65.6 (55-70%)Rt. Atrium3.5 (1.9-4.0cm)Asc. Aorta cm IVSd1.1 (0.7-1.1cm)RV (D)3.2 (1.8-2.4cm) PWd1.1 (0.7-1.1cm) Mitral Valve MitralMitral Stenosis E wave0.79m/sMV Mean GR.mmHg A wave1.01m/sMV Peak GR.mmHg E/A ratio0.82D MVAcm2 DECEL [id number] 1/2 Timems Tricuspid Valve TR Velocity2.60m/s [id number] LEFT VENTRICLE The Ejection Fraction is >55%. ATRIA The left atrial size is normal. The right atrium size is normal. MITRAL VALVE The mitral valve is normal in structure and function. There is no mitral valve regurgitation noted. PULMONIC VALVE The pulmonic valve is not well visualized. TRICUSPID VALVE The tricuspid valve is grossly normal. There is mild tricuspid regurgitation. AORTIC VALVE The aortic valve opens well. No aortic regurgitation is present. GREAT VESSELS The aortic root is normal size. PERICARDIAL EFFUSION There is no pericardial effusion. Conclusion EF >55%
== END 2025-05-21 17:00 | disposition home or self-care (01) ==
LOC: Rad HDHVI 08:58
PROVIDERS: ATTEND Internal Medicine Cardiovascular Disease
DX: I07.1 Rheumatic tricuspid insufficiency (principal); I11.0 Hypertensive heart disease with heart failure; I50.33 Acute on chronic diastolic (congestive) heart failure
CPT/HCPCS: 93306

== ENCOUNTER 2025-06-20 07:59 | Outpatient (CLI) | payer MEDICARE, OTHER | END 2025-06-20 17:00 | disposition home or self-care (01) | LOC: Rad HDHVI 07:59 | PROVIDERS: ATTEND Internal Medicine Cardiovascular Disease | DX: I65.21 Occlusion and stenosis of right carotid artery (principal); I11.0 Hypertensive heart disease with heart failure; I50.33 Acute on chronic diastolic (congestive) heart failure | CPT/HCPCS: 93880 ==